=== PATIENT | female | born 1935 | race Caucasian/White ===

== ENCOUNTER → 2018-10-24 | Day surgery (SDC) | payer MEDICARE, OTHER ==
--- NOTE | 2018-10-25 15:20 | PATH ---
Cytology Non-Gynecological Report Patient Name: MISSY LEE [facility]. Rec. #: [id number] /Age/Gender: 1935 (Age: 83) / F Account: [id number] Location: RADIOLOGY INTER Taken: 10/24/2018 Received: 10/24/2018 Reported: 10/25/2018 Physicians: Louise Rivera M.D. Specimen(s) Received LEFT THYROID FNA Clinical History Left thyroid nodule, 3.97 x 4.05 x 2.86 cm Final Diagnosis THYROID, LEFT, FINE NEEDLE ASPIRATION: SATISFACTORY FOR EVALUATION. BETHESDA III: ATYPIA OF UNDETERMINED SIGNIFICANCE. ATYPICAL FOLLICULAR CELLS WITH MILD NUCLEAR ENLARGEMENT, FOCAL CLEARING, NUCLEAR GROOVES, AND FOCAL CROWDING DISPERSED CELLULAR FRAGMENTS, MICRO AND MACROFOLLICLES IN A BACKGROUND OF COLLOID. RARE LYMPHOCYTES AND MACROPHAGES NOTED. Comment: Molecular studies (Thyroseq) pending; results will be reported separately. Findings discussed with Dr. Morales. Electronically Signed Marleny Lopez M.D. Gross Description Received are eight direct smears, four of which are air-dried and Diff-Quik stained, and four of which are alcohol fixed and Pap stained. Also received is 20 ml of bloody formalin from which one cellblock is prepared.
== END | disposition home or self-care (01) ==
LOC: JRADIR 09:33
PROVIDERS: ATTEND Internal Medicine Endocrinology, Diabetes & Metabolism
PROC: 0G9G3ZX Drainage of Left Thyroid Gland Lobe, Percutaneous Approach, Diagnostic (ICD-10-PCS; principal; 2018-10-24)
PROC: BG44ZZZ Ultrasonography of Thyroid Gland (ICD-10-PCS; 2018-10-24)
DX: E04.1 Nontoxic single thyroid nodule (principal)
CPT/HCPCS: 76942; 88173; 88305-TC

== ENCOUNTER → 2018-11-01 | Day surgery (SDC) | payer MEDICARE, OTHER ==
--- NOTE | 2018-11-02 16:27 | PATH ---
Cytology Non-Gynecological Report Patient Name: MISSY LEE [facility]. Rec. #: [id number] /Age/Gender: 1935 (Age: 83) / F Account: [id number] Location: RADIOLOGY INTER Taken: 11/01/2018 Received: 11/01/2018 Reported: 11/02/2018 Physicians: Louise Rivera M.D. Specimen(s) Received ISTHMUS Clinical History Isthmus nodule, 1.98 x 1.75 x 1.76 cm Final Diagnosis THYROID, ISTHMUS, FINE NEEDLE ASPIRATION: SATISFACTORY FOR EVALUATION. BETHESDA CLASS II: BENIGN. CYTOLOGIC FINDINGS ARE CONSISTENT WITH A BENIGN FOLLICULAR NODULE. FEW SMALL FOLLICULAR CELLS, FEW MACROPHAGES, AND COLLOID PRESENT. Electronically Signed Marleny Lopez M.D. Gross Description Received are eight direct smears, four of which are air-dried and Diff-Quik stained, and four of which are alcohol fixed and Pap stained. Also received is 20 ml of bloody formalin from which one cellblock is prepared.
== END | disposition home or self-care (01) ==
LOC: JRADIR 09:36
PROVIDERS: ATTEND Internal Medicine Endocrinology, Diabetes & Metabolism
PROC: 0G9K3ZX Drainage of Thyroid Gland, Percutaneous Approach, Diagnostic (ICD-10-PCS; principal; 2018-11-01)
PROC: BG44ZZZ Ultrasonography of Thyroid Gland (ICD-10-PCS; 2018-11-01)
DX: E04.1 Nontoxic single thyroid nodule (principal)
CPT/HCPCS: 76942; 88173; 88305-TC

== ENCOUNTER 2021-01-09 05:33 | Inpatient (IN) | payer MEDICARE, OTHER ==
[2021-01-09] MEDS ORDERED: SODIUM CHLORIDE 2,585 ML IV ONE (06:41)
[2021-01-09 07:38] LABS: BASO % 0.3 % (0-2.0); HEMATOCRIT 41.9 % (32.4-45.2); HEMOGLOBIN 14.1 GM/dL (10.7-15.3); LYMPH % 7.9 % (8-40); MCHC 33.7 g/dl (32.0-36.0); MEAN CELL VOLUME 92.2 fl (80-96); MEAN PLT VOLUME 8.4 fl (7.5-11.1); MONO % 8.2 % (3.8-10.2); NEUT % 83.6 % (42.8-82.8); PLATELET COUNT 252 K/MM3 (134-434); RBC 4.54 M/mm3 (3.60-5.2); RDW 14.2 % (11.6-15.6); WHITE BLOOD COUNT 7.8 K/mm3 (4.0-10.0)
[2021-01-09 07:47] LABS: INR 1.07 (0.83-1.09); PROTHROMBIN TIME (PATIENT) 12.9 SEC (9.7-13.0)
[2021-01-09 07:47] LABS: EPI CELLS >36 /uL (0-25.1); HYALINE CASTS 7 /uL (0-3.1); PH,URINE 5.5 (5.0-8.0); URINE APPEARANCE CLOUDY; URINE BACTERIA >9,000 /uL (0-1359); URINE BILIRUBIN NEGATIVE (NEGATIVE); URINE COLOR YELLOW; URINE GLUCOSE (UA) NEGATIVE (NEGATIVE); URINE KETONE 2+ (NEGATIVE); URINE LEUK ESTERASE 1+ (NEGATIVE); URINE NITRITE POSITIVE (NEGATIVE); URINE PROTEIN 3+ (NEGATIVE); URINE UROBILINOGEN 0.2 mg/dL (0.2-1.0); URINE WBC 34 /uL (0-25.8)
[2021-01-09 07:50] LABS: ACTIVATED PTT 27.3 SECONDS (25.2-36.5)
[2021-01-09 08:00] LABS: CALCIUM 8.7 mg/dL (8.5-10.1); CHLORIDE 100 mmol/L (98-107); SODIUM 135 mmol/L (136-145)
[2021-01-09 08:02] LABS: ALBUMIN 3.6 g/dl (3.4-5.0); ANION GAP 7 MMOL/L (8-16); BLOOD UREA NITROGEN 18.2 mg/dL (7-18); CO2 28 mmol/L (21-32); GLUCOSE,RANDOM 96 mg/dL (74-106)
[2021-01-09 08:05] LABS: SGOT/AST 48 U/L (15-37); SGPT/ALT 24 U/L (13-61)
[2021-01-09 08:06] LABS: BILIRUBIN,TOTAL 0.5 mg/dL (0.2-1); TOT PROT 7.3 g/dl (6.4-8.2)
[2021-01-09 08:06] LABS: URINE RBC 45.1 /uL (0-23.9)
[2021-01-09] MEDS ORDERED: ACETAMINOPHEN 1000 MG/100 ML VIAL (NON FORMULARY) IVPB ONE (08:06)
[2021-01-09 08:07] LABS: ALK PHOS 77 U/L (45-117)
[2021-01-09] MEDS ORDERED: DEXAMETHASONE SOD PHOSPHATE 4 MG/1 ML VIAL IVPUSH ONE (08:43)
[2021-01-09] MEDS ORDERED: CEFTRIAXONE 1 GM in DEXTROSE 5%-WATER - 100 ML IVPB ONE (08:43)
[2021-01-09] MEDS ORDERED: CEFTRIAXONE 1 GM/50 ML BAG ONE (08:53)
[2021-01-09] MEDS ORDERED: ACETAMINOPHEN INJECTION 100 ML IVPB ONE (08:53)
[2021-01-09] MEDS ORDERED: DEXAMETHASONE SOD PHOSPHATE 4 MG/1 ML VIAL ONE (08:53)
[2021-01-09] MEDS ORDERED: MAG HYDROX/AL HYDROX/SIMETH 30 ML UNIT-DOSE CUP PO ONE (08:55)
[2021-01-09] MEDS ORDERED: FAMOTIDINE 20 MG/50 ML IVPB 20 MG/50 ML MG IVPB ONE ×2 (08:55→09:12)
[2021-01-09] MEDS ORDERED: MAG HYDROX/AL HYDROX/SIMETH 30 ML UNIT-DOSE CUP ONE (08:57)
[2021-01-09 09:02] LABS: LIPASE 546 U/L (73-393)
[2021-01-09 09:11] LABS: LDH 537 U/L (84-246); N-TERMINAL BNP 834.7 pg/ml (5-450)
[2021-01-09 09:46] LABS: ERYTHROCYTE SEDIMENTATION RATE 59 mm/hr (0-30)
[2021-01-09] MEDS ORDERED: ENOXAPARIN NA (PORCINE) 40 MG/0.4 ML DISP.SYRIN SQ ONE (13:01)
[2021-01-09] MEDS: ENOXAPARIN NA (PORCINE) 40 MG/0.4 ML DISP.SYRIN SQ SCH ×2 (13:05→22:03)
[2021-01-09] MEDS ORDERED: REMDESIVIR 200 MG in SODIUM CHLORIDE 210 ML IVPB ONE (15:25)
[2021-01-09] MEDS ORDERED: LOSARTAN POTASSIUM 50 MG TABLET PO ONE (23:09)
[2021-01-09] MEDS ORDERED: ACETAMINOPHEN 325 MG TABLET (FP) PO PRN (23:10)
[2021-01-10] MEDS ORDERED: amLODIPine BESYLATE 5 MG TABLET (FP) PO ONE (02:04)
[2021-01-10 07:06] LABS: SARS-CoV-2 NAA Detected (Not Detected)
[2021-01-10] MEDS ORDERED: PATIENT'S OWN MEDICATION (NON-FORMULARY) (Losartan Potassium [Losartan Potassium] 100 MG T PO SCH (10:00)
[2021-01-10] MEDS ORDERED: LOSARTAN POTASSIUM 50 MG TABLET PO SCH (10:00)
[2021-01-10] MEDS ORDERED: cefTRIAXone SODIUM 1 GM VIAL ONE (10:37)
[2021-01-10] MEDS ORDERED: DEXTROSE 5%-WATER - 50 ML IVPB ONE (10:38)
[2021-01-10] MEDS: DEXAMETHASONE SOD PHOSPHATE 4 MG/1 ML VIAL IVPUSH SCH (11:12)
[2021-01-10] MEDS: ENOXAPARIN NA (PORCINE) 40 MG/0.4 ML DISP.SYRIN SQ SCH ×2 (11:12→21:18)
[2021-01-10] MEDS: CEFTRIAXONE 1 GM in DEXTROSE 5%-WATER - 50 ML IVPB SCH (11:12)
[2021-01-10 11:51] LABS: BASO % 0.1 % (0-2.0); HEMATOCRIT 40.5 % (32.4-45.2); HEMOGLOBIN 13.6 GM/dL (10.7-15.3); LYMPH % 5.9 % (8-40); MCH 30.8 pg (25.7-33.7); MCHC 33.5 g/dl (32.0-36.0); MEAN CELL VOLUME 92.1 fl (80-96); MEAN PLT VOLUME 8.6 fl (7.5-11.1); MONO % 7.6 % (3.8-10.2); NEUT % 86.4 % (42.8-82.8); PLATELET COUNT 284 K/MM3 (134-434); RDW 14.3 % (11.6-15.6); WHITE BLOOD COUNT 9.9 K/mm3 (4.0-10.0)
[2021-01-10 12:07] LABS: CALCIUM 8.5 mg/dL (8.5-10.1); MAGNESIUM 2.4 mg/dL (1.8-2.4)
[2021-01-10 12:11] LABS: BILIRUBIN,TOTAL 0.4 mg/dL (0.2-1); CREATININE 0.9 mg/dL (0.55-1.3)
[2021-01-10 12:13] LABS: TOT PROT 6.3 g/dl (6.4-8.2)
[2021-01-10] MEDS ORDERED: ACETAMINOPHEN/CAFFEINE/BUTALBITAL 1 TAB PO PRN (15:08)
[2021-01-10] MEDS ORDERED: ACETAMINOPHEN 325 MG TABLET (FP) PO PRN (15:09)
[2021-01-10] MEDS: REMDESIVIR 100 MG in SODIUM CHLORIDE 230 ML IVPB SCH (16:49)
[2021-01-10] MEDS: ATORVASTATIN CA 20 MG TABLET (FP) PO SCH (21:18)
[2021-01-11 07:33] LABS: BASO % 0.1 % (0-2.0); HEMATOCRIT 38.3 % (32.4-45.2); LYMPH % 3.7 % (8-40); MCH 31.2 pg (25.7-33.7); MCHC 34.1 g/dl (32.0-36.0); MEAN CELL VOLUME 91.5 fl (80-96); MEAN PLT VOLUME 8.2 fl (7.5-11.1); MONO % 5.5 % (3.8-10.2); NEUT % 90.7 % (42.8-82.8); PLATELET COUNT 328 K/MM3 (134-434); RBC 4.18 M/mm3 (3.60-5.2); RDW 14.4 % (11.6-15.6); WHITE BLOOD COUNT 11.9 K/mm3 (4.0-10.0)
[2021-01-11 07:46] LABS: BLOOD UREA NITROGEN 32.6 mg/dL (7-18); CALCIUM 8.1 mg/dL (8.5-10.1); CREATININE 0.9 mg/dL (0.55-1.3); MAGNESIUM 2.3 mg/dL (1.8-2.4)
[2021-01-11 07:48] LABS: BILIRUBIN,TOTAL 0.4 mg/dL (0.2-1); TOT PROT 6.1 g/dl (6.4-8.2)
[2021-01-11] MEDS ORDERED: cefTRIAXone SODIUM 1 GM VIAL ONE ×2 (09:10→17:59)
[2021-01-11] MEDS ORDERED: DEXTROSE 5%-WATER - 50 ML IVPB ONE (09:10)
[2021-01-11] MEDS: DEXAMETHASONE SOD PHOSPHATE 4 MG/1 ML VIAL IVPUSH SCH (09:33)
[2021-01-11] MEDS: VALSARTAN 160 MG TABLET PO SCH (09:33)
[2021-01-11] MEDS: ENOXAPARIN NA (PORCINE) 40 MG/0.4 ML DISP.SYRIN SQ SCH ×2 (09:33→21:44)
[2021-01-11] MEDS: CEFTRIAXONE 1 GM in DEXTROSE 5%-WATER - 50 ML IVPB SCH (09:34)
[2021-01-11] MEDS: FAMOTIDINE 20 MG TABLET PO SCH (09:34)
[2021-01-11] MEDS ORDERED: VALSARTAN 160 MG TABLET PO SCH (10:00)
[2021-01-11] MEDS: REMDESIVIR 100 MG in SODIUM CHLORIDE 230 ML IVPB SCH (17:52)
[2021-01-11] MEDS ORDERED: LORazepam 2 MG/ML SDV VIAL IVPUSH ONE (21:26)
[2021-01-11] MEDS: ATORVASTATIN CA 20 MG TABLET (FP) PO SCH (21:44)
[2021-01-12 07:30] LABS: BASO % 0.1 % (0-2.0); HEMATOCRIT 39.9 % (32.4-45.2); HEMOGLOBIN 13.4 GM/dL (10.7-15.3); LYMPH % 1.8 % (8-40); MCH 31.1 pg (25.7-33.7); MCHC 33.6 g/dl (32.0-36.0); MEAN CELL VOLUME 92.5 fl (80-96); MEAN PLT VOLUME 8.5 fl (7.5-11.1); MONO % 4.8 % (3.8-10.2); NEUT % 93.3 % (42.8-82.8); PLATELET COUNT 361 K/MM3 (134-434); RBC 4.31 M/mm3 (3.60-5.2); RDW 14.6 % (11.6-15.6); WHITE BLOOD COUNT 16.1 K/mm3 (4.0-10.0)
[2021-01-12 07:41] LABS: MAGNESIUM 2.1 mg/dL (1.8-2.4)
[2021-01-12 07:42] LABS: BLOOD UREA NITROGEN 26.3 mg/dL (7-18)
[2021-01-12 07:44] LABS: ALBUMIN 2.9 g/dl (3.4-5.0); CALCIUM 8.3 mg/dL (8.5-10.1)
[2021-01-12 07:45] LABS: CREATININE 0.8 mg/dL (0.55-1.3)
[2021-01-12 07:46] LABS: BILIRUBIN,TOTAL 0.4 mg/dL (0.2-1); TOT PROT 5.9 g/dl (6.4-8.2)
[2021-01-12] MEDS ORDERED: cefTRIAXone SODIUM 1 GM VIAL ONE (08:59)
[2021-01-12] MEDS ORDERED: DEXTROSE 5%-WATER - 50 ML IVPB ONE (08:59)
[2021-01-12] MEDS: VALSARTAN 160 MG TABLET PO SCH (09:51)
[2021-01-12] MEDS: ENOXAPARIN NA (PORCINE) 40 MG/0.4 ML DISP.SYRIN SQ SCH ×2 (09:51→21:50)
[2021-01-12] MEDS: DEXAMETHASONE SOD PHOSPHATE 4 MG/1 ML VIAL IVPUSH SCH (09:52)
[2021-01-12] MEDS: CEFTRIAXONE 1 GM in DEXTROSE 5%-WATER - 50 ML IVPB SCH (09:56)
[2021-01-12] MEDS: FAMOTIDINE 20 MG TABLET PO SCH (09:57)
[2021-01-12] MEDS ORDERED: LORazepam 2 MG/ML SDV VIAL IVPUSH SCH (10:04)
[2021-01-12 10:31] LABS: ANISOCYTOSIS 0; MACROCYTOSIS 0; PLATELET ESTIMATE NORMAL
[2021-01-12] MEDS ORDERED: LORazepam 2 MG/ML SDV VIAL IVPUSH PRN ×2 (10:32→19:25)
[2021-01-12] MEDS ORDERED: FENTANYL D5W IVPB 1,000 MCG/200 ML BAG IVPB SCH (13:00)
[2021-01-12] MEDS ORDERED: FENTANYL NS IVPB 500 MCG/100 ML BAG IVPB ONE ×2 (13:06→17:37)
[2021-01-12] MEDS ORDERED: MIDAZOLAM 100 MG/100 ML MG IVPB ONE ×2 (13:07→21:47)
[2021-01-12] MEDS ORDERED: MIDAZOLAM HCL 2 MG/2 ML SINGLE DOSE VIAL ONE (13:07)
[2021-01-12] MEDS: MIDAZOLAM IN 0.9 % SOD.CHLORID 100 MG/100 ML PLAST..BAG IVPB SCH (13:15)
[2021-01-12] MEDS ORDERED: PROPOFOL 1,000,000 MCG/100 ML VIAL ONE (13:39)
[2021-01-12] MEDS ORDERED: VASOPRESSIN 20 UNITS/ML VIAL IV ONE (13:48)
[2021-01-12] MEDS: SODIUM CHLORIDE 1,000 ML IV SCH (14:00)
[2021-01-12] MEDS ORDERED: VECURONIUM BROMIDE 10 MG/10 ML VIAL ONE (14:11)
[2021-01-12] MEDS ORDERED: VECURONIUM BROMIDE 100 MG/100 ML BAG IVPB SCH (14:15)
[2021-01-12] MEDS: VASOPRESSIN 40 UNITS in SODIUM CHLORIDE 98 ML IVPB SCH (14:20)
[2021-01-12] MEDS ORDERED: MIDAZOLAM HCL 2 MG/2 ML SINGLE DOSE VIAL IVPUSH ONE (14:21)
[2021-01-12] MEDS ORDERED: SODIUM CHLORIDE 0.9% 500 ML INFUS.BAG IV ONE (14:21)
[2021-01-12] MEDS ORDERED: VECURONIUM BROMIDE 10 MG/10 ML VIAL IVPUSH ONE (14:21)
[2021-01-12] MEDS ORDERED: PROPOFOL 1,000,000 MCG/100 ML VIAL IVPB SCH (14:30)
[2021-01-12] MEDS ORDERED: NOREPINEPHRINE BITARTRATE 8,000 MCG/500 ML BAG IVPB SCH (14:30)
[2021-01-12] MEDS ORDERED: FENTANYL NS IVPB 500 MCG/100 ML BAG IVPB SCH (14:30)
[2021-01-12] MEDS ORDERED: TOCILIZUMAB (ACTEMRA) 200 MG/10 ML VIAL IVPB ONE (14:45)
[2021-01-12] MEDS ORDERED: TOCILIZUMAB IVPB ONE (15:00)
[2021-01-12] MEDS ORDERED: SODIUM CHLORIDE IVPB ONE (15:00)
[2021-01-12 15:39] LABS: ARTERIAL BLD GAS O2 SATURATION 94.2 mmHg (95-98); ARTERIAL BLOOD GAS BASE EXCESS -6.2 mmol/L (-2-2)
[2021-01-12 15:40] LABS: VENT MODE V
[2021-01-12 15:41] LABS: VENT RATE 12
[2021-01-12 15:43] LABS: ALLENS TEST POSITIVE; ARTERIAL BLOOD GAS pH 7.085 (7.350-7.450)
[2021-01-12] MEDS ORDERED: PT OWN MED DRAWER 7, Y5N ONE (16:50)
[2021-01-12] MEDS: REMDESIVIR 100 MG in SODIUM CHLORIDE 230 ML IVPB SCH (17:03)
[2021-01-12] MEDS: NOREPINEPHRINE D5W PREMIX 16,000 MCG/500 ML BAG IVPB SCH (17:05)
[2021-01-12] MEDS: FENTANYL NS IVPB 500 MCG/100 ML BAG IVPB SCH (17:58)
[2021-01-12] MEDS: ATORVASTATIN CA 20 MG TABLET (FP) PO SCH (21:50)
[2021-01-12] MEDS: MUPIROCIN 2% TOPICAL OINTMENT FOR DECOLONIZATION NS SCH (21:50)
[2021-01-12] MEDS: CHLORHEXIDINE GLUCONATE 4% CLEANSER FOR DECOLONIZATION TP SCH (21:50)
[2021-01-13] MEDS: FENTANYL NS IVPB 500 MCG/100 ML BAG IVPB SCH ×2 (01:00→18:06)
[2021-01-13] MEDS: NOREPINEPHRINE D5W PREMIX 16,000 MCG/500 ML BAG IVPB SCH ×2 (01:00→18:05)
[2021-01-13] MEDS: SODIUM CHLORIDE 1,000 ML IV SCH (01:00)
[2021-01-13] MEDS: MIDAZOLAM IN 0.9 % SOD.CHLORID 100 MG/100 ML PLAST..BAG IVPB SCH ×2 (01:00→18:48)
[2021-01-13 06:04] LABS: ARTERIAL BLD GAS O2 SATURATION 97.4 mmHg (95-98); ARTERIAL BLOOD GAS PO2 113.7 mmHg (80-100); ARTERIAL BLOOD GAS pH 7.236 (7.350-7.450)
[2021-01-13 06:06] LABS: VENT MODE VOL A/C; VENT RATE 30
[2021-01-13 07:44] LABS: BASO % 0.2 % (0-2.0); HEMATOCRIT 37.5 % (32.4-45.2); HEMOGLOBIN 12.5 GM/dL (10.7-15.3); LYMPH % 2.5 % (8-40); MCH 30.9 pg (25.7-33.7); MCHC 33.3 g/dl (32.0-36.0); MEAN CELL VOLUME 92.8 fl (80-96); MEAN PLT VOLUME 8.7 fl (7.5-11.1); MONO % 4.2 % (3.8-10.2); NEUT % 93.1 % (42.8-82.8); PLATELET COUNT 419 K/MM3 (134-434); RBC 4.04 M/mm3 (3.60-5.2); RDW 14.9 % (11.6-15.6); WHITE BLOOD COUNT 18.6 K/mm3 (4.0-10.0)
[2021-01-13 07:55] LABS: BLOOD UREA NITROGEN 39.7 mg/dL (7-18); CALCIUM 7.8 mg/dL (8.5-10.1); MAGNESIUM 2.2 mg/dL (1.8-2.4)
[2021-01-13 07:57] LABS: ALBUMIN 2.6 g/dl (3.4-5.0)
[2021-01-13 07:59] LABS: BILIRUBIN,TOTAL 0.3 mg/dL (0.2-1); TOT PROT 5.5 g/dl (6.4-8.2)
[2021-01-13 08:00] LABS: CREATININE 1.1 mg/dL (0.55-1.3)
[2021-01-13] MEDS ORDERED: cefTRIAXone SODIUM 1 GM VIAL ONE (08:47)
[2021-01-13] MEDS ORDERED: DEXTROSE 5%-WATER - 50 ML IVPB ONE (08:47)
[2021-01-13] MEDS ORDERED: DEXTROSE 5%-LACTATED RINGERS 1,000 ML IV SCH (09:00)
[2021-01-13] MEDS: DEXAMETHASONE SOD PHOSPHATE 4 MG/1 ML VIAL IVPUSH SCH (09:27)
[2021-01-13] MEDS: FAMOTIDINE 20 MG/50 ML IVPB 20 MG/50 ML MG IVPB SCH (09:28)
[2021-01-13] MEDS: ENOXAPARIN NA (PORCINE) 40 MG/0.4 ML DISP.SYRIN SQ SCH ×2 (09:29→21:01)
[2021-01-13] MEDS: CEFTRIAXONE 1 GM in DEXTROSE 5%-WATER - 50 ML IVPB SCH (09:30)
[2021-01-13 10:03] LABS: ANISOCYTOSIS 0; HELMET CELLS 0; HOWELL-JOLLY BODIES 0; MACROCYTOSIS 0; OVALOCYTE 0; PLATELET ESTIMATE NORMAL; ROULEAU 0; SICKELED CELLS 0; TARGET CELLS 0; TEAR DROP CELLS 0; TOXIC GRANULATION 0
[2021-01-13] MEDS: LACTATED RINGERS SOLUTION 1,000 ML/1,000 ML INFUS.BAG IV SCH (10:08)
[2021-01-13] MEDS: MUPIROCIN 2% TOPICAL OINTMENT FOR DECOLONIZATION NS SCH ×2 (10:08→21:02)
[2021-01-13 14:58] VITALS: BMI 35.1
[2021-01-13 16:50] LABS: CHLORIDE 113 mmol/L (98-107); SODIUM 146 mmol/L (136-145)
[2021-01-13 16:52] LABS: CALCIUM 7.6 mg/dL (8.5-10.1)
[2021-01-13 16:53] LABS: ALBUMIN 2.5 g/dl (3.4-5.0); ANION GAP 8 MMOL/L (8-16); CO2 24 mmol/L (21-32); GLUCOSE,RANDOM 235 mg/dL (74-106)
[2021-01-13 16:56] LABS: CREATININE 1.3 mg/dL (0.55-1.3); SGOT/AST 53 U/L (15-37); SGPT/ALT 40 U/L (13-61)
[2021-01-13 16:57] LABS: BILIRUBIN,TOTAL 0.2 mg/dL (0.2-1); TOT PROT 5.2 g/dl (6.4-8.2)
[2021-01-13 16:59] LABS: ALK PHOS 67 U/L (45-117)
[2021-01-13] MEDS ORDERED: REMDESIVIR 100 MG in SODIUM CHLORIDE 230 ML IVPB SCH (17:00)
[2021-01-13] MEDS ORDERED: MIDAZOLAM 100 MG/100 ML MG IVPB ONE (18:02)
[2021-01-13] MEDS: VASOPRESSIN 40 UNITS in SODIUM CHLORIDE 98 ML IVPB SCH (18:03)
[2021-01-13 20:15] LABS: HEMATOCRIT 36.6 % (32.4-45.2); HEMOGLOBIN 11.7 GM/dL (10.7-15.3); MCH 30.1 pg (25.7-33.7); MEAN CELL VOLUME 94.2 fl (80-96); MEAN PLT VOLUME 9.2 fl (7.5-11.1); PLATELET COUNT 394 K/MM3 (134-434); RBC 3.88 M/mm3 (3.60-5.2); WHITE BLOOD COUNT 15.5 K/mm3 (4.0-10.0)
[2021-01-13] MEDS: CHLORHEXIDINE GLUCONATE 4% CLEANSER FOR DECOLONIZATION TP SCH (21:02)
[2021-01-13] MEDS: ATORVASTATIN CA 20 MG TABLET (FP) PO SCH (21:02)
[2021-01-14 07:12] LABS: HEMOGLOBIN 11.8 GM/dL (10.7-15.3); MCH 31.1 pg (25.7-33.7); MCHC 33.7 g/dl (32.0-36.0); MEAN CELL VOLUME 92.4 fl (80-96); MEAN PLT VOLUME 8.2 fl (7.5-11.1); PLATELET COUNT 408 K/MM3 (134-434); RBC 3.79 M/mm3 (3.60-5.2); RDW 14.9 % (11.6-15.6); WHITE BLOOD COUNT 13.5 K/mm3 (4.0-10.0)
[2021-01-14 07:28] LABS: CHLORIDE 114 mmol/L (98-107); SODIUM 145 mmol/L (136-145)
[2021-01-14 07:30] LABS: CALCIUM 7.6 mg/dL (8.5-10.1)
[2021-01-14 07:31] LABS: ALBUMIN 2.4 g/dl (3.4-5.0); ANION GAP 6 MMOL/L (8-16); BLOOD UREA NITROGEN 59.6 mg/dL (7-18); CO2 25 mmol/L (21-32); GLUCOSE,RANDOM 218 mg/dL (74-106)
[2021-01-14 07:32] LABS: MAGNESIUM 2.1 mg/dL (1.8-2.4)
[2021-01-14 07:34] LABS: CREATININE 1.5 mg/dL (0.55-1.3); PHOSPHOROUS 2.9 mg/dL (2.5-4.9); SGOT/AST 35 U/L (15-37); SGPT/ALT 31 U/L (13-61)
[2021-01-14 07:35] LABS: BILIRUBIN,TOTAL 0.2 mg/dL (0.2-1)
[2021-01-14 07:36] LABS: TOT PROT 4.8 g/dl (6.4-8.2)
[2021-01-14 07:37] LABS: ALK PHOS 63 U/L (45-117)
[2021-01-14] MEDS ORDERED: cefTRIAXone SODIUM 1 GM VIAL ONE (09:25)
[2021-01-14] MEDS ORDERED: DEXTROSE 5%-WATER - 50 ML IVPB ONE (09:26)
[2021-01-14] MEDS ORDERED: MIDAZOLAM 100 MG/100 ML MG IVPB ONE (09:28)
[2021-01-14] MEDS: MUPIROCIN 2% TOPICAL OINTMENT FOR DECOLONIZATION NS SCH ×2 (09:30→21:56)
[2021-01-14] MEDS: DEXAMETHASONE SOD PHOSPHATE 4 MG/1 ML VIAL IVPUSH SCH (09:30)
[2021-01-14] MEDS: MIDAZOLAM IN 0.9 % SOD.CHLORID 100 MG/100 ML PLAST..BAG IVPB SCH ×2 (09:30→13:49)
[2021-01-14] MEDS: ENOXAPARIN NA (PORCINE) 40 MG/0.4 ML DISP.SYRIN SQ SCH ×2 (09:30→21:56)
[2021-01-14] MEDS: FAMOTIDINE 20 MG/50 ML IVPB 20 MG/50 ML MG IVPB SCH (09:31)
[2021-01-14] MEDS: CEFTRIAXONE 1 GM in DEXTROSE 5%-WATER - 50 ML IVPB SCH (09:31)
[2021-01-14] MEDS: LACTATED RINGERS SOLUTION 1,000 ML/1,000 ML INFUS.BAG IV SCH (10:17)
[2021-01-14] MEDS ORDERED: ATROPINE SULFATE 1 MG/10 ML DISP.SYRIN IVPUSH ONE (10:29)
[2021-01-14] MEDS ORDERED: REMDESIVIR 100 MG in SODIUM CHLORIDE 230 ML IVPB SCH (12:00)
[2021-01-14] MEDS: FENTANYL NS IVPB 500 MCG/100 ML BAG IVPB SCH ×2 (13:09→19:01)
[2021-01-14] MEDS: VASOPRESSIN 40 UNITS in SODIUM CHLORIDE 98 ML IVPB SCH (16:54)
[2021-01-14] MEDS: NOREPINEPHRINE D5W PREMIX 16,000 MCG/500 ML BAG IVPB SCH (16:55)
[2021-01-14] MEDS: REMDESIVIR 100 MG in SODIUM CHLORIDE 250 ML IVPB SCH (17:09)
[2021-01-14] MEDS: CHLORHEXIDINE GLUCONATE 4% CLEANSER FOR DECOLONIZATION TP SCH (21:56)
[2021-01-14] MEDS: ATORVASTATIN CA 20 MG TABLET (FP) PO SCH (21:56)
[2021-01-15] MEDS ORDERED: MIDAZOLAM 100 MG/100 ML MG IVPB ONE ×2 (01:55→21:36)
[2021-01-15 06:58] LABS: HEMATOCRIT 33.8 % (32.4-45.2); HEMOGLOBIN 11.5 GM/dL (10.7-15.3); MCH 31.5 pg (25.7-33.7); MCHC 34.1 g/dl (32.0-36.0); MEAN CELL VOLUME 92.4 fl (80-96); MEAN PLT VOLUME 8.2 fl (7.5-11.1); PLATELET COUNT 362 K/MM3 (134-434); RBC 3.66 M/mm3 (3.60-5.2); RDW 15.1 % (11.6-15.6); WHITE BLOOD COUNT 13.3 K/mm3 (4.0-10.0)
[2021-01-15 07:04] LABS: ALBUMIN 2.2 g/dl (3.4-5.0)
[2021-01-15 07:05] LABS: BLOOD UREA NITROGEN 69.3 mg/dL (7-18)
[2021-01-15 07:06] LABS: BILIRUBIN,TOTAL 0.2 mg/dL (0.2-1); CALCIUM 7.4 mg/dL (8.5-10.1); TOT PROT 4.6 g/dl (6.4-8.2)
[2021-01-15 07:07] LABS: MAGNESIUM 2.1 mg/dL (1.8-2.4)
[2021-01-15 07:08] LABS: CREATININE 1.2 mg/dL (0.55-1.3); PHOSPHOROUS 2.7 mg/dL (2.5-4.9)
[2021-01-15] MEDS ORDERED: DEXTROSE 5%-WATER - 50 ML IVPB ONE (09:50)
[2021-01-15] MEDS ORDERED: cefTRIAXone SODIUM 1 GM VIAL ONE (09:50)
[2021-01-15] MEDS: MUPIROCIN 2% TOPICAL OINTMENT FOR DECOLONIZATION NS SCH ×2 (09:52→21:38)
[2021-01-15] MEDS: LACTATED RINGERS SOLUTION 1,000 ML/1,000 ML INFUS.BAG IV SCH (09:53)
[2021-01-15] MEDS: ENOXAPARIN NA (PORCINE) 40 MG/0.4 ML DISP.SYRIN SQ SCH ×2 (09:53→21:38)
[2021-01-15] MEDS: CEFTRIAXONE 1 GM in DEXTROSE 5%-WATER - 50 ML IVPB SCH (09:53)
[2021-01-15] MEDS: FAMOTIDINE 20 MG/50 ML IVPB 20 MG/50 ML MG IVPB SCH (09:53)
[2021-01-15] MEDS: DEXAMETHASONE SOD PHOSPHATE 4 MG/1 ML VIAL IVPUSH SCH (09:53)
[2021-01-15] MEDS: FENTANYL NS IVPB 500 MCG/100 ML BAG IVPB SCH ×3 (11:41→19:18)
[2021-01-15] MEDS: MIDAZOLAM IN 0.9 % SOD.CHLORID 100 MG/100 ML PLAST..BAG IVPB SCH (13:00)
[2021-01-15] MEDS: VASOPRESSIN 40 UNITS in SODIUM CHLORIDE 98 ML IVPB SCH (14:47)
[2021-01-15] MEDS ORDERED: PT OWN MED DRAWER 7, Y5N ONE (16:39)
[2021-01-15] MEDS: ACETAMINOPHEN 325 MG TABLET (FP) PO PRN (18:00)
[2021-01-15] MEDS: NOREPINEPHRINE D5W PREMIX 16,000 MCG/500 ML BAG IVPB SCH (18:03)
[2021-01-15] MEDS: REMDESIVIR 100 MG in SODIUM CHLORIDE 250 ML IVPB SCH (18:04)
[2021-01-15] MEDS: CHLORHEXIDINE GLUCONATE 4% CLEANSER FOR DECOLONIZATION TP SCH (21:38)
[2021-01-15] MEDS: ATORVASTATIN CA 20 MG TABLET (FP) PO SCH (21:39)
[2021-01-16] MEDS: FENTANYL NS IVPB 500 MCG/100 ML BAG IVPB SCH ×3 (03:02→15:56)
[2021-01-16] MEDS: LACTATED RINGERS SOLUTION 1,000 ML/1,000 ML INFUS.BAG IV SCH ×2 (03:02→16:48)
[2021-01-16] MEDS: MIDAZOLAM IN 0.9 % SOD.CHLORID 100 MG/100 ML PLAST..BAG IVPB SCH ×2 (03:02→16:52)
[2021-01-16 07:20] LABS: CALCIUM 7.6 mg/dL (8.5-10.1)
[2021-01-16 07:21] LABS: ALBUMIN 2.1 g/dl (3.4-5.0); BASO % 0.1 % (0-2.0); BLOOD UREA NITROGEN 72.5 mg/dL (7-18); HEMATOCRIT 35.1 % (32.4-45.2); HEMOGLOBIN 11.8 GM/dL (10.7-15.3); LYMPH % 2.1 % (8-40); MAGNESIUM 2.3 mg/dL (1.8-2.4); MCHC 33.6 g/dl (32.0-36.0); MEAN CELL VOLUME 92.4 fl (80-96); MEAN PLT VOLUME 8.8 fl (7.5-11.1); NEUT % 92.8 % (42.8-82.8); PLATELET COUNT 370 K/MM3 (134-434); RDW 14.9 % (11.6-15.6); WHITE BLOOD COUNT 15.5 K/mm3 (4.0-10.0)
[2021-01-16 07:24] LABS: CREATININE 1.2 mg/dL (0.55-1.3); PHOSPHOROUS 3.3 mg/dL (2.5-4.9)
[2021-01-16 07:26] LABS: BILIRUBIN,TOTAL 0.2 mg/dL (0.2-1); TOT PROT 4.5 g/dl (6.4-8.2)
[2021-01-16] MEDS ORDERED: DEXTROSE 5%-WATER - 50 ML IVPB ONE (09:10)
[2021-01-16] MEDS ORDERED: cefTRIAXone SODIUM 1 GM VIAL ONE (09:10)
[2021-01-16] MEDS: FAMOTIDINE 20 MG/50 ML IVPB 20 MG/50 ML MG IVPB SCH (09:11)
[2021-01-16] MEDS: ENOXAPARIN NA (PORCINE) 40 MG/0.4 ML DISP.SYRIN SQ SCH ×2 (09:13→21:33)
[2021-01-16] MEDS: DEXAMETHASONE SOD PHOSPHATE 4 MG/1 ML VIAL IVPUSH SCH (09:15)
[2021-01-16] MEDS: CEFTRIAXONE 1 GM in DEXTROSE 5%-WATER - 50 ML IVPB SCH (09:15)
[2021-01-16] MEDS: MUPIROCIN 2% TOPICAL OINTMENT FOR DECOLONIZATION NS SCH ×2 (10:02→21:33)
[2021-01-16 10:39] LABS: ANISOCYTOSIS 0; MACROCYTOSIS 0; PLATELET ESTIMATE NORMAL
[2021-01-16] MEDS: VASOPRESSIN 40 UNITS in SODIUM CHLORIDE 98 ML IVPB SCH (16:53)
[2021-01-16] MEDS: NOREPINEPHRINE D5W PREMIX 16,000 MCG/500 ML BAG IVPB SCH (17:56)
[2021-01-16] MEDS: REMDESIVIR 100 MG in SODIUM CHLORIDE 250 ML IVPB SCH (17:56)
[2021-01-16] MEDS: CHLORHEXIDINE GLUCONATE 4% CLEANSER FOR DECOLONIZATION TP SCH (21:33)
[2021-01-16] MEDS: ATORVASTATIN CA 20 MG TABLET (FP) PO SCH (21:33)
[2021-01-16] MEDS ORDERED: MIDAZOLAM 100 MG/100 ML MG IVPB ONE (23:25)
[2021-01-17] MEDS: FENTANYL NS IVPB 500 MCG/100 ML BAG IVPB SCH ×4 (00:09→20:00)
[2021-01-17 01:06] LABS: HEP B CORE AB, TOT Negative (Negative)
[2021-01-17 06:16] LABS: ARTERIAL BLD GAS O2 SATURATION 92.6 mmHg (95-98); ARTERIAL BLOOD GAS PO2 70.9 mmHg (80-100)
[2021-01-17 06:18] LABS: ALLENS TEST POSITIVE; VENT MODE A/C; VENT RATE 30
[2021-01-17 06:28] LABS: HEMATOCRIT 37.8 % (32.4-45.2); HEMOGLOBIN 12.3 GM/dL (10.7-15.3); MCH 30.5 pg (25.7-33.7); MCHC 32.6 g/dl (32.0-36.0); MEAN CELL VOLUME 93.5 fl (80-96); MEAN PLT VOLUME 8.9 fl (7.5-11.1); PLATELET COUNT 360 K/MM3 (134-434); RBC 4.04 M/mm3 (3.60-5.2); RDW 15.1 % (11.6-15.6); WHITE BLOOD COUNT 24.1 K/mm3 (4.0-10.0)
[2021-01-17 06:49] LABS: CALCIUM 7.8 mg/dL (8.5-10.1)
[2021-01-17 06:50] LABS: BLOOD UREA NITROGEN 74.8 mg/dL (7-18); MAGNESIUM 2.3 mg/dL (1.8-2.4)
[2021-01-17 06:53] LABS: CREATININE 1.1 mg/dL (0.55-1.3); PHOSPHOROUS 3.5 mg/dL (2.5-4.9)
[2021-01-17] MEDS: MIDAZOLAM IN 0.9 % SOD.CHLORID 100 MG/100 ML PLAST..BAG IVPB SCH (09:40)
[2021-01-17] MEDS ORDERED: cefTRIAXone SODIUM 1 GM VIAL ONE (10:02)
[2021-01-17] MEDS ORDERED: DEXTROSE 5%-WATER - 50 ML IVPB ONE (10:03)
[2021-01-17] MEDS: CEFTRIAXONE 1 GM in DEXTROSE 5%-WATER - 50 ML IVPB SCH (10:04)
[2021-01-17] MEDS: FAMOTIDINE 20 MG/50 ML IVPB 20 MG/50 ML MG IVPB SCH (10:04)
[2021-01-17] MEDS: DEXAMETHASONE SOD PHOSPHATE 4 MG/1 ML VIAL IVPUSH SCH (10:06)
[2021-01-17] MEDS: ENOXAPARIN NA (PORCINE) 40 MG/0.4 ML DISP.SYRIN SQ SCH ×2 (10:07→21:52)
[2021-01-17] MEDS: MUPIROCIN 2% TOPICAL OINTMENT FOR DECOLONIZATION NS SCH (10:07)
[2021-01-17] MEDS: LACTATED RINGERS SOLUTION 1,000 ML/1,000 ML INFUS.BAG IV SCH (10:07)
[2021-01-17] MEDS: INSULIN SLIDING SCALE (NOVOLOG) 1 VIAL SQ SCH ×3 (12:02→23:50)
[2021-01-17] MEDS ORDERED: DOCUSATE NA 100 MG/10 ML UNIT-DOSE CUPS PO PRN (14:25)
[2021-01-17] MEDS ORDERED: POLYETHYLENE GLYCOL 3350 119 GM BTL PO SCH (14:30)
[2021-01-17] MEDS: REMDESIVIR 100 MG in SODIUM CHLORIDE 250 ML IVPB SCH (17:03)
[2021-01-17] MEDS: VASOPRESSIN 40 UNITS in SODIUM CHLORIDE 98 ML IVPB SCH (17:03)
[2021-01-17] MEDS: NOREPINEPHRINE D5W PREMIX 16,000 MCG/500 ML BAG IVPB SCH (17:16)
[2021-01-17] MEDS ORDERED: MIDAZOLAM 100 MG/100 ML MG IVPB ONE (20:16)
[2021-01-17] MEDS: ATORVASTATIN CA 20 MG TABLET (FP) PO SCH (21:52)
[2021-01-17] MEDS: SENNOSIDES 8.8 MG/5 ML BULK BOTTLE PO SCH (21:52)
[2021-01-17] MEDS: CHLORHEXIDINE GLUCONATE 4% CLEANSER FOR DECOLONIZATION TP SCH (23:51)
[2021-01-18] MEDS: INSULIN SLIDING SCALE (NOVOLOG) 1 VIAL SQ SCH ×3 (06:45→17:46)
[2021-01-18 06:46] LABS: ARTERIAL BLOOD GAS BASE EXCESS -3.6 mmol/L (-2-2); ARTERIAL BLOOD GAS PO2 79.2 mmHg (80-100); ARTERIAL BLOOD GAS pH 7.334 (7.350-7.450)
[2021-01-18 06:56] LABS: ALLENS TEST POSITIVE
[2021-01-18 06:57] LABS: VENT MODE A/C; VENT RATE 30
[2021-01-18 07:41] LABS: BASO % 0.2 % (0-2.0); HEMATOCRIT 35.5 % (32.4-45.2); HEMOGLOBIN 11.8 GM/dL (10.7-15.3); LYMPH % 1.5 % (8-40); MCH 30.6 pg (25.7-33.7); MCHC 33.2 g/dl (32.0-36.0); MEAN CELL VOLUME 92.4 fl (80-96); MEAN PLT VOLUME 9.6 fl (7.5-11.1); MONO % 4.8 % (3.8-10.2); NEUT % 93.5 % (42.8-82.8); PLATELET COUNT 311 K/MM3 (134-434); RBC 3.84 M/mm3 (3.60-5.2); WHITE BLOOD COUNT 24.6 K/mm3 (4.0-10.0)
[2021-01-18 07:54] LABS: BLOOD UREA NITROGEN 61.8 mg/dL (7-18); CALCIUM 7.6 mg/dL (8.5-10.1)
[2021-01-18 07:55] LABS: MAGNESIUM 2.2 mg/dL (1.8-2.4)
[2021-01-18 07:57] LABS: CREATININE 0.9 mg/dL (0.55-1.3)
[2021-01-18 07:59] LABS: BILIRUBIN,TOTAL 0.2 mg/dL (0.2-1); PHOSPHOROUS 2.9 mg/dL (2.5-4.9); TOT PROT 4.1 g/dl (6.4-8.2)
[2021-01-18 09:12] LABS: ANISOCYTOSIS 0; MACROCYTOSIS 0; PLATELET ESTIMATE NORMAL
[2021-01-18] MEDS ORDERED: DEXTROSE 5%-WATER - 50 ML IVPB ONE ×2 (09:20→17:44)
[2021-01-18] MEDS ORDERED: cefTRIAXone SODIUM 1 GM VIAL ONE (09:20)
[2021-01-18] MEDS: FAMOTIDINE 20 MG/50 ML IVPB 20 MG/50 ML MG IVPB SCH (09:22)
[2021-01-18] MEDS: CEFTRIAXONE 1 GM in DEXTROSE 5%-WATER - 50 ML IVPB SCH (09:24)
[2021-01-18] MEDS: ENOXAPARIN NA (PORCINE) 40 MG/0.4 ML DISP.SYRIN SQ SCH ×2 (09:25→21:04)
[2021-01-18] MEDS: DEXAMETHASONE SOD PHOSPHATE 4 MG/1 ML VIAL IVPUSH SCH (09:25)
[2021-01-18] MEDS: LACTATED RINGERS SOLUTION 1,000 ML/1,000 ML INFUS.BAG IV SCH ×2 (12:37→14:06)
[2021-01-18] MEDS: FENTANYL NS IVPB 500 MCG/100 ML BAG IVPB SCH ×2 (12:38→18:41)
[2021-01-18] MEDS: VASOPRESSIN 40 UNITS in SODIUM CHLORIDE 98 ML IVPB SCH (14:06)
[2021-01-18] MEDS ORDERED: PIPERACILLIN/TAZOBACTAM 3.375 GM VIAL IVPB ONE (17:44)
[2021-01-18] MEDS: NOREPINEPHRINE D5W PREMIX 16,000 MCG/500 ML BAG IVPB SCH (17:45)
[2021-01-18] MEDS: REMDESIVIR 100 MG in SODIUM CHLORIDE 250 ML IVPB SCH (17:45)
[2021-01-18] MEDS: PIPERACILLIN/TAZOB 3.375 GM 3.375 GM in DEXTROSE 5%-WATER - 50 ML IVPB SCH (17:46)
[2021-01-18] MEDS ORDERED: MIDAZOLAM 100 MG/100 ML MG IVPB ONE (17:47)
[2021-01-18] MEDS: MIDAZOLAM IN 0.9 % SOD.CHLORID 100 MG/100 ML PLAST..BAG IVPB SCH ×2 (17:52→18:40)
[2021-01-18] MEDS ORDERED: PT OWN MED DRAWER 7, Y5N ONE (20:36)
[2021-01-18] MEDS: ATORVASTATIN CA 20 MG TABLET (FP) PO SCH (21:04)
[2021-01-18] MEDS: SENNOSIDES 8.8 MG/5 ML BULK BOTTLE PO SCH (21:04)
[2021-01-18] MEDS: CHLORHEXIDINE GLUCONATE 4% CLEANSER FOR DECOLONIZATION TP SCH (22:12)
[2021-01-19] MEDS ORDERED: PIPERACILLIN/TAZOBACTAM 3.375 GM VIAL IVPB ONE ×3 (00:46→17:38)
[2021-01-19] MEDS ORDERED: DEXTROSE 5%-WATER - 50 ML IVPB ONE ×3 (00:47→17:38)
[2021-01-19] MEDS: INSULIN SLIDING SCALE (NOVOLOG) 1 VIAL SQ SCH ×5 (00:53→23:58)
[2021-01-19] MEDS: PIPERACILLIN/TAZOB 3.375 GM 3.375 GM in DEXTROSE 5%-WATER - 50 ML IVPB SCH ×3 (01:00→18:12)
[2021-01-19 07:11] LABS: BASO % 0.1 % (0-2.0); HEMATOCRIT 36.5 % (32.4-45.2); LYMPH % 2.2 % (8-40); MCH 30.2 pg (25.7-33.7); MCHC 32.7 g/dl (32.0-36.0); MEAN CELL VOLUME 92.1 fl (80-96); MONO % 6.3 % (3.8-10.2); NEUT % 91.4 % (42.8-82.8); PLATELET COUNT 283 K/MM3 (134-434); RBC 3.96 M/mm3 (3.60-5.2); RDW 15.1 % (11.6-15.6); WHITE BLOOD COUNT 27.4 K/mm3 (4.0-10.0)
[2021-01-19 07:28] LABS: BLOOD UREA NITROGEN 62.7 mg/dL (7-18); CALCIUM 7.3 mg/dL (8.5-10.1)
[2021-01-19 07:30] LABS: PHOSPHOROUS 3.4 mg/dL (2.5-4.9)
[2021-01-19 07:32] LABS: BILIRUBIN,TOTAL 0.2 mg/dL (0.2-1)
[2021-01-19 09:06] LABS: ANISOCYTOSIS 0; HELMET CELLS 0; HOWELL-JOLLY BODIES 0; MACROCYTOSIS 0; OVALOCYTE 0; PLATELET ESTIMATE NORMAL; ROULEAU 0; SICKELED CELLS 0; TARGET CELLS 0; TEAR DROP CELLS 0; TOXIC GRANULATION 0
[2021-01-19] MEDS: ENOXAPARIN NA (PORCINE) 40 MG/0.4 ML DISP.SYRIN SQ SCH ×2 (09:15→21:15)
[2021-01-19] MEDS: DEXAMETHASONE SOD PHOSPHATE 4 MG/1 ML VIAL IVPUSH SCH (09:15)
[2021-01-19] MEDS: FAMOTIDINE 20 MG/50 ML IVPB 20 MG/50 ML MG IVPB SCH (09:16)
[2021-01-19] MEDS ORDERED: MIDAZOLAM 100 MG/100 ML MG IVPB ONE ×2 (09:21→21:13)
[2021-01-19] MEDS: FENTANYL NS IVPB 500 MCG/100 ML BAG IVPB SCH ×2 (10:07→18:11)
[2021-01-19] MEDS: MIDAZOLAM IN 0.9 % SOD.CHLORID 100 MG/100 ML PLAST..BAG IVPB SCH (10:07)
[2021-01-19] MEDS: NOREPINEPHRINE D5W PREMIX 16,000 MCG/500 ML BAG IVPB SCH (17:35)
[2021-01-19] MEDS: LACTATED RINGERS SOLUTION 1,000 ML/1,000 ML INFUS.BAG IV SCH (18:08)
[2021-01-19] MEDS: VASOPRESSIN 40 UNITS in SODIUM CHLORIDE 98 ML IVPB SCH (18:08)
[2021-01-19] MEDS ORDERED: PT OWN MED DRAWER 7, Y5N ONE (21:14)
[2021-01-19] MEDS: SENNOSIDES 8.8 MG/5 ML BULK BOTTLE PO SCH (21:15)
[2021-01-19] MEDS: ATORVASTATIN CA 20 MG TABLET (FP) PO SCH (21:15)
[2021-01-19] MEDS: CHLORHEXIDINE GLUCONATE 4% CLEANSER FOR DECOLONIZATION TP SCH (21:16)
[2021-01-20] MEDS: PIPERACILLIN/TAZOB 3.375 GM 3.375 GM in DEXTROSE 5%-WATER - 50 ML IVPB SCH ×3 (01:38→17:51)
[2021-01-20] MEDS: INSULIN SLIDING SCALE (NOVOLOG) 1 VIAL SQ SCH ×3 (06:22→17:47)
[2021-01-20 07:12] LABS: BASO % 0.1 % (0-2.0); HEMATOCRIT 35.7 % (32.4-45.2); HEMOGLOBIN 11.7 GM/dL (10.7-15.3); LYMPH % 2.3 % (8-40); MCH 30.4 pg (25.7-33.7); MCHC 32.9 g/dl (32.0-36.0); MEAN CELL VOLUME 92.3 fl (80-96); MEAN PLT VOLUME 10.2 fl (7.5-11.1); NEUT % 91.6 % (42.8-82.8); PLATELET COUNT 240 K/MM3 (134-434); RBC 3.86 M/mm3 (3.60-5.2); RDW 14.8 % (11.6-15.6)
[2021-01-20 07:23] LABS: WHITE BLOOD COUNT 31.2 K/mm3 (4.0-10.0)
[2021-01-20 07:38] LABS: CALCIUM 7.2 mg/dL (8.5-10.1)
[2021-01-20 07:39] LABS: BLOOD UREA NITROGEN 59.7 mg/dL (7-18); MAGNESIUM 2.1 mg/dL (1.8-2.4)
[2021-01-20 07:40] LABS: BILIRUBIN,TOTAL 0.4 mg/dL (0.2-1); PHOSPHOROUS 3.3 mg/dL (2.5-4.9); TOT PROT 3.9 g/dl (6.4-8.2)
[2021-01-20] MEDS ORDERED: PT OWN MED DRAWER 7, Y5N ONE ×2 (08:25→11:38)
[2021-01-20] MEDS ORDERED: DEXTROSE 5%-WATER - 50 ML IVPB ONE ×3 (08:25→17:12)
[2021-01-20] MEDS ORDERED: PIPERACILLIN/TAZOBACTAM 3.375 GM VIAL IVPB ONE ×3 (08:25→17:12)
[2021-01-20] MEDS: NOREPINEPHRINE D5W PREMIX 16,000 MCG/500 ML BAG IVPB SCH (08:28)
[2021-01-20] MEDS: LACTATED RINGERS SOLUTION 1,000 ML/1,000 ML INFUS.BAG IV SCH (08:29)
[2021-01-20] MEDS: ACETAMINOPHEN 325 MG TABLET (FP) PO PRN (08:30)
[2021-01-20] MEDS: ENOXAPARIN NA (PORCINE) 40 MG/0.4 ML DISP.SYRIN SQ SCH ×2 (09:02→22:21)
[2021-01-20] MEDS: DEXAMETHASONE SOD PHOSPHATE 4 MG/1 ML VIAL IVPUSH SCH (09:03)
[2021-01-20] MEDS: FAMOTIDINE 20 MG/50 ML IVPB 20 MG/50 ML MG IVPB SCH (09:27)
[2021-01-20 09:49] LABS: ANISOCYTOSIS 0; MACROCYTOSIS 0; OVALOCYTE 2+; PLATELET ESTIMATE NORMAL; ROULEAU 1+
[2021-01-20] MEDS ORDERED: MIDAZOLAM 100 MG in SODIUM CHLORIDE 100 ML IVPB SCH (11:00)
[2021-01-20] MEDS ORDERED: FUROSEMIDE 40 MG/4 ML INJECTABLE VIAL IVPUSH ONE (11:00)
[2021-01-20] MEDS: CEFAZOLIN 1 GM/D5W 1 GM/50 ML BAG IVPB SCH ×2 (11:43→17:21)
[2021-01-20] MEDS ORDERED: VANCOMYCIN 250 MG/5 ML ORAL SOLUTION PO SCH (12:00)
[2021-01-20] MEDS ORDERED: POLYETHYLENE GLYCOL 3350 119 GM BTL PO SCH (12:44)
[2021-01-20] MEDS ORDERED: MIDAZOLAM 100 MG/100 ML MG IVPB ONE (12:58)
[2021-01-20] MEDS: FENTANYL NS IVPB 500 MCG/100 ML BAG IVPB SCH (14:00)
[2021-01-20] MEDS: VASOPRESSIN 40 UNITS in SODIUM CHLORIDE 98 ML IVPB SCH (15:01)
[2021-01-20] MEDS: POLYETHYLENE GLYCOL 3350 119 GM BTL PO PRN (15:38)
[2021-01-20] MEDS: SENNOSIDES 8.8 MG/5 ML BULK BOTTLE PO SCH (22:21)
[2021-01-20] MEDS: CHLORHEXIDINE GLUCONATE 4% CLEANSER FOR DECOLONIZATION TP SCH (22:22)
[2021-01-20] MEDS: ATORVASTATIN CA 20 MG TABLET (FP) PO SCH (22:22)
[2021-01-21] MEDS: INSULIN SLIDING SCALE (NOVOLOG) 1 VIAL SQ SCH ×4 (00:47→18:08)
[2021-01-21] MEDS: CEFAZOLIN 1 GM/D5W 1 GM/50 ML BAG IVPB SCH ×3 (02:55→17:31)
[2021-01-21] MEDS ORDERED: PIPERACILLIN/TAZOBACTAM 3.375 GM VIAL IVPB ONE ×3 (03:50→17:26)
[2021-01-21] MEDS ORDERED: DEXTROSE 5%-WATER - 50 ML IVPB ONE ×3 (03:50→17:26)
[2021-01-21] MEDS: PIPERACILLIN/TAZOB 3.375 GM 3.375 GM in DEXTROSE 5%-WATER - 50 ML IVPB SCH ×3 (03:52→17:31)
[2021-01-21] MEDS ORDERED: MIDAZOLAM 100 MG/100 ML MG IVPB ONE ×2 (06:44→20:56)
[2021-01-21 07:15] LABS: HEMATOCRIT 34.7 % (32.4-45.2); HEMOGLOBIN 11.4 GM/dL (10.7-15.3); LYMPH % 2.9 % (8-40); MCH 30.4 pg (25.7-33.7); MCHC 32.8 g/dl (32.0-36.0); MEAN CELL VOLUME 92.5 fl (80-96); MEAN PLT VOLUME 10.8 fl (7.5-11.1); MONO % 6.3 % (3.8-10.2); NEUT % 90.8 % (42.8-82.8); PLATELET COUNT 224 K/MM3 (134-434); RBC 3.75 M/mm3 (3.60-5.2)
[2021-01-21 07:49] LABS: CALCIUM 7.6 mg/dL (8.5-10.1)
[2021-01-21 07:50] LABS: ALBUMIN 1.9 g/dl (3.4-5.0); BLOOD UREA NITROGEN 63.4 mg/dL (7-18); MAGNESIUM 2.1 mg/dL (1.8-2.4)
[2021-01-21 07:51] LABS: BILIRUBIN,TOTAL 0.3 mg/dL (0.2-1); TOT PROT 3.9 g/dl (6.4-8.2)
[2021-01-21 07:53] LABS: CREATININE 1.1 mg/dL (0.55-1.3); PHOSPHOROUS 4.4 mg/dL (2.5-4.9)
[2021-01-21 09:17] LABS: ANISOCYTOSIS 1+; MACROCYTOSIS 0; PLATELET ESTIMATE NORMAL; TOXIC GRANULATION 2+
[2021-01-21] MEDS: FAMOTIDINE 20 MG/50 ML IVPB 20 MG/50 ML MG IVPB SCH (10:08)
[2021-01-21] MEDS: DEXAMETHASONE SOD PHOSPHATE 4 MG/1 ML VIAL IVPUSH SCH (10:09)
[2021-01-21] MEDS: ENOXAPARIN NA (PORCINE) 40 MG/0.4 ML DISP.SYRIN SQ SCH ×2 (10:09→21:05)
[2021-01-21] MEDS ORDERED: FUROSEMIDE 40 MG/4 ML INJECTABLE VIAL IVPUSH ONE (11:45)
[2021-01-21] MEDS ORDERED: PT OWN MED DRAWER 7, Y5N ONE ×2 (12:12→20:57)
[2021-01-21] MEDS: VANCOMYCIN/WATER BAGS 1,250 MG/250 ML BAG IVPB SCH (14:01)
[2021-01-21] MEDS: ATORVASTATIN CA 20 MG TABLET (FP) PO SCH (21:04)
[2021-01-21] MEDS: CHLORHEXIDINE GLUCONATE 4% CLEANSER FOR DECOLONIZATION TP SCH (21:04)
[2021-01-21] MEDS: SENNOSIDES 8.8 MG/5 ML BULK BOTTLE PO SCH (21:05)
[2021-01-21] MEDS: FENTANYL NS IVPB 500 MCG/100 ML BAG IVPB SCH (21:06)
[2021-01-21] MEDS: VASOPRESSIN 40 UNITS in SODIUM CHLORIDE 98 ML IVPB SCH (21:06)
[2021-01-22] MEDS: VANCOMYCIN/WATER BAGS 1,250 MG/250 ML BAG IVPB SCH
[2021-01-22] MEDS: PIPERACILLIN/TAZOB 3.375 GM 3.375 GM in DEXTROSE 5%-WATER - 50 ML IVPB SCH ×2 (02:30→09:35)
[2021-01-22] MEDS ORDERED: PIPERACILLIN/TAZOBACTAM 3.375 GM VIAL IVPB ONE ×2 (03:40→07:52)
[2021-01-22] MEDS ORDERED: DEXTROSE 5%-WATER - 50 ML IVPB ONE ×2 (03:40→07:52)
[2021-01-22] MEDS: INSULIN SLIDING SCALE (NOVOLOG) 1 VIAL SQ SCH ×4 (03:59→17:05)
[2021-01-22] MEDS: CEFAZOLIN 1 GM/D5W 1 GM/50 ML BAG IVPB SCH ×3 (04:00→17:06)
[2021-01-22 07:52] LABS: BASO % 0.1 % (0-2.0); HEMATOCRIT 32.2 % (32.4-45.2); HEMOGLOBIN 10.8 GM/dL (10.7-15.3); LYMPH % 3.2 % (8-40); MCHC 33.5 g/dl (32.0-36.0); MEAN CELL VOLUME 92.5 fl (80-96); MEAN PLT VOLUME 10.8 fl (7.5-11.1); MONO % 6.2 % (3.8-10.2); NEUT % 90.5 % (42.8-82.8); PLATELET COUNT 214 K/MM3 (134-434); RBC 3.48 M/mm3 (3.60-5.2); RDW 14.6 % (11.6-15.6); WHITE BLOOD COUNT 26.9 K/mm3 (4.0-10.0)
[2021-01-22 08:08] LABS: ALBUMIN 1.9 g/dl (3.4-5.0)
[2021-01-22 08:09] LABS: CALCIUM 7.6 mg/dL (8.5-10.1)
[2021-01-22 08:10] LABS: BLOOD UREA NITROGEN 79.5 mg/dL (7-18); MAGNESIUM 2.2 mg/dL (1.8-2.4)
[2021-01-22 08:13] LABS: BILIRUBIN,TOTAL 0.3 mg/dL (0.2-1); CREATININE 1.2 mg/dL (0.55-1.3); PHOSPHOROUS 4.9 mg/dL (2.5-4.9); TOT PROT 3.7 g/dl (6.4-8.2)
[2021-01-22] MEDS: FAMOTIDINE 20 MG/50 ML IVPB 20 MG/50 ML MG IVPB SCH (09:35)
[2021-01-22] MEDS: DEXAMETHASONE SOD PHOSPHATE 4 MG/1 ML VIAL IVPUSH SCH (09:36)
[2021-01-22] MEDS: ENOXAPARIN NA (PORCINE) 40 MG/0.4 ML DISP.SYRIN SQ SCH ×2 (09:36→21:31)
[2021-01-22] MEDS ORDERED: DEXAMETHASONE SOD PHOSPHATE 4 MG/1 ML VIAL IVPUSH SCH (10:36)
[2021-01-22] MEDS ORDERED: DEXMEDETOMIDINE IN 0.9 % NACL 400 MCG/100 ML VIAL IVPB SCH (10:45)
[2021-01-22] MEDS ORDERED: PROPOFOL 1,000,000 MCG/100 ML VIAL IVPB SCH (10:45)
[2021-01-22 10:56] LABS: ANISOCYTOSIS 0; MACROCYTOSIS 0; PLATELET ESTIMATE NORMAL
[2021-01-22] MEDS ORDERED: VANCOMYCIN/WATER 1,250 MG/250 ML BAG IVPB SCH (12:00)
[2021-01-22] MEDS ORDERED: MIDAZOLAM 100 MG/100 ML MG IVPB ONE (15:16)
[2021-01-22] MEDS: ATORVASTATIN CA 20 MG TABLET (FP) PO SCH (21:32)
[2021-01-22] MEDS: SENNOSIDES 8.8 MG/5 ML BULK BOTTLE PO SCH (21:32)
[2021-01-22] MEDS: CHLORHEXIDINE GLUCONATE 4% CLEANSER FOR DECOLONIZATION TP SCH (21:33)
[2021-01-22] MEDS: VASOPRESSIN 40 UNITS in SODIUM CHLORIDE 98 ML IVPB SCH (21:33)
[2021-01-23] MEDS: CEFAZOLIN 1 GM/D5W 1 GM/50 ML BAG IVPB SCH ×3 (02:55→17:08)
[2021-01-23] MEDS: INSULIN SLIDING SCALE (NOVOLOG) 1 VIAL SQ SCH ×4 (02:57→17:21)
[2021-01-23 07:18] LABS: BASO % 0.1 % (0-2.0); HEMATOCRIT 34.3 % (32.4-45.2); LYMPH % 5.7 % (8-40); MCH 29.9 pg (25.7-33.7); MCHC 32.2 g/dl (32.0-36.0); MEAN CELL VOLUME 92.8 fl (80-96); MEAN PLT VOLUME 10.6 fl (7.5-11.1); MONO % 7.1 % (3.8-10.2); NEUT % 87.1 % (42.8-82.8); PLATELET COUNT 241 K/MM3 (134-434); RBC 3.69 M/mm3 (3.60-5.2); RDW 15.1 % (11.6-15.6); WHITE BLOOD COUNT 28.5 K/mm3 (4.0-10.0)
[2021-01-23 07:37] LABS: CALCIUM 7.7 mg/dL (8.5-10.1)
[2021-01-23 07:38] LABS: BLOOD UREA NITROGEN 81.5 mg/dL (7-18); MAGNESIUM 2.2 mg/dL (1.8-2.4)
[2021-01-23 07:41] LABS: CREATININE 1.2 mg/dL (0.55-1.3); PHOSPHOROUS 4.3 mg/dL (2.5-4.9)
[2021-01-23 07:42] LABS: BILIRUBIN,TOTAL 0.4 mg/dL (0.2-1)
[2021-01-23] MEDS ORDERED: FUROSEMIDE 40 MG/4 ML INJECTABLE VIAL IVPUSH ONE ×2 (08:01→16:12)
[2021-01-23] MEDS: ENOXAPARIN NA (PORCINE) 40 MG/0.4 ML DISP.SYRIN SQ SCH ×2 (09:10→22:57)
[2021-01-23] MEDS: DEXAMETHASONE SOD PHOSPHATE 4 MG/1 ML VIAL IVPUSH SCH (09:10)
[2021-01-23] MEDS: FAMOTIDINE 20 MG/50 ML IVPB 20 MG/50 ML MG IVPB SCH (09:10)
[2021-01-23 10:00] LABS: ANISOCYTOSIS 1+; MACROCYTOSIS 1+; PLATELET ESTIMATE NORMAL
[2021-01-23 10:40] LABS: ARTERIAL BLD GAS O2 SATURATION 94.4 mmHg (95-98); ARTERIAL BLOOD GAS BASE EXCESS 1.1 mmol/L (-2-2); ARTERIAL BLOOD GAS PO2 68.8 mmHg (80-100); ARTERIAL BLOOD GAS pH 7.439 (7.350-7.450)
[2021-01-23 10:41] LABS: ALLENS TEST POSITIVE; VENT MODE A/C; VENT RATE 16
[2021-01-23] MEDS ORDERED: PT OWN MED DRAWER 7, Y5N ONE (22:56)
[2021-01-23] MEDS: ATORVASTATIN CA 20 MG TABLET (FP) PO SCH (22:57)
[2021-01-23] MEDS: ACETAMINOPHEN 325 MG TABLET (FP) PO PRN (22:57)
[2021-01-23] MEDS: SENNOSIDES 8.8 MG/5 ML BULK BOTTLE PO SCH (22:58)
[2021-01-23] MEDS: CHLORHEXIDINE GLUCONATE 4% CLEANSER FOR DECOLONIZATION TP SCH (22:58)
[2021-01-24] MEDS: INSULIN SLIDING SCALE (NOVOLOG) 1 VIAL SQ SCH ×4 (06:01→17:34)
[2021-01-24] MEDS ORDERED: FUROSEMIDE 40 MG/4 ML INJECTABLE VIAL IVPUSH ONE (07:19)
[2021-01-24] MEDS: NOREPINEPHRINE D5W PREMIX 16,000 MCG/500 ML BAG IVPB SCH (07:25)
[2021-01-24] MEDS: LORazepam 2 MG/ML SDV VIAL IVPUSH PRN ×2 (07:34→11:19)
[2021-01-24 09:01] LABS: HEMATOCRIT 36.7 % (32.4-45.2); HEMOGLOBIN 12.1 GM/dL (10.7-15.3); MCH 30.5 pg (25.7-33.7); MEAN CELL VOLUME 92.4 fl (80-96); MEAN PLT VOLUME 10.7 fl (7.5-11.1); PLATELET COUNT 243 K/MM3 (134-434); RBC 3.97 M/mm3 (3.60-5.2)
[2021-01-24 09:03] LABS: WHITE BLOOD COUNT 31.9 K/mm3 (4.0-10.0)
[2021-01-24 09:04] LABS: ALBUMIN 2.4 g/dl (3.4-5.0); BLOOD UREA NITROGEN 88.6 mg/dL (7-18); CALCIUM 7.9 mg/dL (8.5-10.1); MAGNESIUM 2.4 mg/dL (1.8-2.4)
[2021-01-24 09:07] LABS: CREATININE 1.3 mg/dL (0.55-1.3)
[2021-01-24 09:08] LABS: PHOSPHOROUS 4.3 mg/dL (2.5-4.9)
[2021-01-24 09:09] LABS: BILIRUBIN,TOTAL 0.7 mg/dL (0.2-1); TOT PROT 4.8 g/dl (6.4-8.2)
[2021-01-24] MEDS: FAMOTIDINE 20 MG/50 ML IVPB 20 MG/50 ML MG IVPB SCH (09:15)
[2021-01-24] MEDS: DEXAMETHASONE SOD PHOSPHATE 4 MG/1 ML VIAL IVPUSH SCH (09:15)
[2021-01-24] MEDS: ENOXAPARIN NA (PORCINE) 40 MG/0.4 ML DISP.SYRIN SQ SCH ×2 (09:15→21:34)
[2021-01-24] MEDS ORDERED: DEXTROSE 5%-WATER - 50 ML IVPB ONE ×2 (09:17→17:14)
[2021-01-24] MEDS ORDERED: PIPERACILLIN/TAZOBACTAM 3.375 GM VIAL IVPB ONE ×2 (09:17→17:14)
[2021-01-24] MEDS: PIPERACILLIN/TAZOB 3.375 GM 3.375 GM in DEXTROSE 5%-WATER - 50 ML IVPB SCH ×2 (09:29→17:27)
[2021-01-24] MEDS: ACETAMINOPHEN 325 MG TABLET (FP) PO PRN (10:03)
[2021-01-24] MEDS ORDERED: ACETAMINOPHEN 1000 MG/100 ML VIAL (NON FORMULARY) IVPB ONE (16:23)
[2021-01-24] MEDS: CHLORHEXIDINE GLUCONATE 4% CLEANSER FOR DECOLONIZATION TP SCH (21:34)
[2021-01-24] MEDS: ATORVASTATIN CA 20 MG TABLET (FP) PO SCH (21:35)
[2021-01-24] MEDS ORDERED: VANCOMYCIN 1 GRAM (PRE-DOCKED) 1,000 MG/250 ML BAG IVPB ONE (22:00)
[2021-01-24] MEDS: SENNOSIDES 8.8 MG/5 ML BULK BOTTLE PO SCH (22:25)
[2021-01-25] MEDS ORDERED: DEXTROSE 5%-WATER - 50 ML IVPB ONE ×4 (00:46→23:54)
[2021-01-25] MEDS ORDERED: PIPERACILLIN/TAZOBACTAM 3.375 GM VIAL IVPB ONE ×4 (00:46→23:54)
[2021-01-25] MEDS: INSULIN SLIDING SCALE (NOVOLOG) 1 VIAL SQ SCH ×4 (01:06→17:02)
[2021-01-25] MEDS: PIPERACILLIN/TAZOB 3.375 GM 3.375 GM in DEXTROSE 5%-WATER - 50 ML IVPB SCH ×3 (01:07→17:01)
[2021-01-25 07:29] LABS: BASO % 0.1 % (0-2.0); EOS % 0.1 % (0-4.5); HEMATOCRIT 32.4 % (32.4-45.2); HEMOGLOBIN 10.8 GM/dL (10.7-15.3); LYMPH % 4.2 % (8-40); MCH 30.8 pg (25.7-33.7); MCHC 33.3 g/dl (32.0-36.0); MEAN CELL VOLUME 92.4 fl (80-96); MEAN PLT VOLUME 10.8 fl (7.5-11.1); NEUT % 89.6 % (42.8-82.8); PLATELET COUNT 209 K/MM3 (134-434); RBC 3.51 M/mm3 (3.60-5.2); RDW 14.8 % (11.6-15.6)
[2021-01-25 07:37] LABS: CALCIUM 7.7 mg/dL (8.5-10.1)
[2021-01-25 07:38] LABS: ALBUMIN 2.3 g/dl (3.4-5.0); BLOOD UREA NITROGEN 89.7 mg/dL (7-18); MAGNESIUM 2.4 mg/dL (1.8-2.4)
[2021-01-25 07:41] LABS: CREATININE 1.7 mg/dL (0.55-1.3)
[2021-01-25 07:43] LABS: BILIRUBIN,TOTAL 0.7 mg/dL (0.2-1); TOT PROT 4.6 g/dl (6.4-8.2)
[2021-01-25 08:28] LABS: WHITE BLOOD COUNT 37.4 K/mm3 (4.0-10.0)
[2021-01-25] MEDS: LORazepam 2 MG/ML SDV VIAL IVPUSH PRN ×2 (08:36→21:23)
[2021-01-25] MEDS: NOREPINEPHRINE D5W PREMIX 16,000 MCG/500 ML BAG IVPB SCH (09:10)
[2021-01-25] MEDS: DEXAMETHASONE SOD PHOSPHATE 4 MG/1 ML VIAL IVPUSH SCH (09:11)
[2021-01-25] MEDS: ENOXAPARIN NA (PORCINE) 40 MG/0.4 ML DISP.SYRIN SQ SCH ×2 (09:11→21:22)
[2021-01-25] MEDS: FAMOTIDINE 20 MG/50 ML IVPB 20 MG/50 ML MG IVPB SCH (09:12)
[2021-01-25] MEDS: ACETAMINOPHEN 325 MG TABLET (FP) PO PRN (10:04)
[2021-01-25] MEDS: SODIUM CHLORIDE 1,000 ML IV SCH (10:50)
[2021-01-25 13:02] LABS: ANISOCYTOSIS 0; MACROCYTOSIS 0; PLATELET ESTIMATE NORMAL; ROULEAU 1+
[2021-01-25] MEDS ORDERED: MORPHINE SULFATE 2 MG/ML VIAL IVPUSH PRN (15:28)
[2021-01-25] MEDS ORDERED: PT OWN MED DRAWER 7, Y5N ONE (20:39)
[2021-01-25] MEDS: SENNOSIDES 8.8 MG/5 ML BULK BOTTLE PO SCH (21:22)
[2021-01-25] MEDS: CHLORHEXIDINE GLUCONATE 4% CLEANSER FOR DECOLONIZATION TP SCH (21:22)
[2021-01-25] MEDS: POLYETHYLENE GLYCOL 3350 119 GM BTL PO PRN (21:23)
[2021-01-25] MEDS: ATORVASTATIN CA 20 MG TABLET (FP) PO SCH (21:23)
[2021-01-25] MEDS ORDERED: DEXMEDETOMIDINE IN 0.9 % NACL 200 MCG/50 ML EACH IVPB SCH (21:45)
[2021-01-25] MEDS ORDERED: PROPOFOL 1,000,000 MCG/100 ML VIAL IVPB SCH (21:45)
[2021-01-26] MEDS: INSULIN SLIDING SCALE (NOVOLOG) 1 VIAL SQ SCH ×5 (00:43→23:40)
[2021-01-26] MEDS: PIPERACILLIN/TAZOB 3.375 GM 3.375 GM in DEXTROSE 5%-WATER - 50 ML IVPB SCH ×3 (01:42→18:34)
[2021-01-26] MEDS: MIDAZOLAM 100 MG/100 ML MG IVPB SCH ×2 (01:43→23:40)
[2021-01-26] MEDS: NOREPINEPHRINE D5W PREMIX 16,000 MCG/500 ML BAG IVPB SCH (01:51)
[2021-01-26 07:03] LABS: HEMATOCRIT 23.9 % (32.4-45.2); HEMOGLOBIN 7.9 GM/dL (10.7-15.3); MCH 30.5 pg (25.7-33.7); MCHC 32.9 g/dl (32.0-36.0); MEAN CELL VOLUME 92.4 fl (80-96); PLATELET COUNT 143 K/MM3 (134-434); RBC 2.59 M/mm3 (3.60-5.2); RDW 14.7 % (11.6-15.6)
[2021-01-26 07:22] LABS: CHLORIDE 111 mmol/L (98-107); SODIUM 144 mmol/L (136-145)
[2021-01-26 07:25] LABS: CALCIUM 7.4 mg/dL (8.5-10.1)
[2021-01-26 07:26] LABS: ALBUMIN 1.9 g/dl (3.4-5.0); BLOOD UREA NITROGEN 78.6 mg/dL (7-18); GLUCOSE,RANDOM 213 mg/dL (74-106); MAGNESIUM 2.3 mg/dL (1.8-2.4)
[2021-01-26 07:28] LABS: ANION GAP 4 MMOL/L (8-16); CO2 28 mmol/L (21-32)
[2021-01-26 07:29] LABS: CREATININE 1.1 mg/dL (0.55-1.3); PHOSPHOROUS 3.1 mg/dL (2.5-4.9); SGOT/AST 30 U/L (15-37); SGPT/ALT 15 U/L (13-61)
[2021-01-26 07:30] LABS: BILIRUBIN,TOTAL 0.8 mg/dL (0.2-1); TOT PROT 3.7 g/dl (6.4-8.2)
[2021-01-26 07:31] LABS: ALK PHOS 61 U/L (45-117)
[2021-01-26] MEDS ORDERED: DEXTROSE 5%-WATER - 50 ML IVPB ONE (10:42)
[2021-01-26] MEDS ORDERED: PIPERACILLIN/TAZOBACTAM 3.375 GM VIAL IVPB ONE (10:42)
[2021-01-26] MEDS: DEXAMETHASONE SOD PHOSPHATE 4 MG/1 ML VIAL IVPUSH SCH (10:50)
[2021-01-26] MEDS: FAMOTIDINE 20 MG/50 ML IVPB 20 MG/50 ML MG IVPB SCH (10:50)
[2021-01-26] MEDS: ENOXAPARIN NA (PORCINE) 40 MG/0.4 ML DISP.SYRIN SQ SCH ×2 (10:50→23:40)
[2021-01-26] MEDS ORDERED: METOPROLOL TARTRATE 5 MG/5 ML VIAL IVPUSH ONE (12:46)
[2021-01-26] MEDS: PROPOFOL 1,000,000 MCG/100 ML VIAL IVPB SCH (12:55)
[2021-01-26] MEDS: SODIUM CHLORIDE 1,000 ML IV SCH (14:15)
[2021-01-26 16:58] LABS: CHOLESTEROL 126 mg/dL (50-200); TRIGLYCERIDES 145 mg/dL (0-150)
[2021-01-26 17:00] LABS: LDL CHOLESTEROL (ONLY SJRH) 77 mg/dL (5-100)
[2021-01-26 17:01] LABS: HDL CHOLESTEROL 28 mg/dL (40-60)
[2021-01-26] MEDS: CHLORHEXIDINE GLUCONATE 4% CLEANSER FOR DECOLONIZATION TP SCH (23:40)
[2021-01-26] MEDS: ATORVASTATIN CA 20 MG TABLET (FP) PO SCH (23:40)
[2021-01-26] MEDS: SENNOSIDES 8.8 MG/5 ML BULK BOTTLE PO SCH (23:40)
[2021-01-27] MEDS ORDERED: PIPERACILLIN/TAZOBACTAM 3.375 GM VIAL IVPB ONE ×3 (00:16→18:51)
[2021-01-27] MEDS ORDERED: DEXTROSE 5%-WATER - 50 ML IVPB ONE ×3 (00:16→18:51)
[2021-01-27] MEDS: PIPERACILLIN/TAZOB 3.375 GM 3.375 GM in DEXTROSE 5%-WATER - 50 ML IVPB SCH ×3 (01:01→19:01)
[2021-01-27] MEDS: INSULIN SLIDING SCALE (NOVOLOG) 1 VIAL SQ SCH ×3 (05:48→19:00)
[2021-01-27 08:16] LABS: ALBUMIN 1.9 g/dl (3.4-5.0); CREATININE 0.9 mg/dL (0.55-1.3)
[2021-01-27 08:18] LABS: BILIRUBIN,TOTAL 0.4 mg/dL (0.2-1); BLOOD UREA NITROGEN 72.8 mg/dL (7-18)
[2021-01-27 08:19] LABS: TOT PROT 3.6 g/dl (6.4-8.2)
[2021-01-27 08:20] LABS: PHOSPHOROUS 3.5 mg/dL (2.5-4.9)
[2021-01-27 08:22] LABS: CALCIUM 7.5 mg/dL (8.5-10.1); MAGNESIUM 2.4 mg/dL (1.8-2.4)
[2021-01-27 08:26] LABS: HEMATOCRIT 21.7 % (32.4-45.2); HEMOGLOBIN 7.1 GM/dL (10.7-15.3); MCH 30.4 pg (25.7-33.7); MCHC 32.9 g/dl (32.0-36.0); MEAN CELL VOLUME 92.6 fl (80-96); PLATELET COUNT 153 K/MM3 (134-434); RBC 2.35 M/mm3 (3.60-5.2); RDW 14.5 % (11.6-15.6); WHITE BLOOD COUNT 29.5 K/mm3 (4.0-10.0)
[2021-01-27] MEDS: FAMOTIDINE 20 MG/50 ML IVPB 20 MG/50 ML MG IVPB SCH (11:12)
[2021-01-27] MEDS: SODIUM CHLORIDE 1,000 ML IV SCH (11:12)
[2021-01-27] MEDS: DEXAMETHASONE SOD PHOSPHATE 4 MG/1 ML VIAL IVPUSH SCH (11:12)
[2021-01-27] MEDS: ENOXAPARIN NA (PORCINE) 40 MG/0.4 ML DISP.SYRIN SQ SCH ×2 (11:12→21:52)
[2021-01-27] MEDS ORDERED: FUROSEMIDE 40 MG/4 ML INJECTABLE VIAL IVPUSH ONE (11:15)
[2021-01-27] MEDS: PROPOFOL 1,000,000 MCG/100 ML VIAL IVPB SCH (14:04)
[2021-01-27] MEDS: DEXMEDETOMIDINE IN 0.9 % NACL 400 MCG/100 ML VIAL IVPB SCH (20:35)
[2021-01-27] MEDS ORDERED: PT OWN MED DRAWER 7, Y5N ONE (21:50)
[2021-01-27] MEDS: CHLORHEXIDINE GLUCONATE 4% CLEANSER FOR DECOLONIZATION TP SCH (21:53)
[2021-01-27] MEDS: SENNOSIDES 8.8 MG/5 ML BULK BOTTLE PO SCH (21:53)
[2021-01-27] MEDS: ATORVASTATIN CA 20 MG TABLET (FP) PO SCH (21:53)
[2021-01-28] MEDS ORDERED: DEXTROSE 5%-WATER - 50 ML IVPB ONE ×3 (00:38→18:05)
[2021-01-28] MEDS ORDERED: PIPERACILLIN/TAZOBACTAM 3.375 GM VIAL IVPB ONE ×3 (00:38→18:05)
[2021-01-28] MEDS: INSULIN SLIDING SCALE (NOVOLOG) 1 VIAL SQ SCH ×5 (00:51→23:10)
[2021-01-28] MEDS: PIPERACILLIN/TAZOB 3.375 GM 3.375 GM in DEXTROSE 5%-WATER - 50 ML IVPB SCH ×3 (00:59→18:16)
[2021-01-28 07:07] LABS: HEMATOCRIT 22.2 % (32.4-45.2); HEMOGLOBIN 7.2 GM/dL (10.7-15.3); MCH 30.4 pg (25.7-33.7); MCHC 32.7 g/dl (32.0-36.0); MEAN CELL VOLUME 93.1 fl (80-96); MEAN PLT VOLUME 10.6 fl (7.5-11.1); PLATELET COUNT 129 K/MM3 (134-434); RBC 2.38 M/mm3 (3.60-5.2); RDW 14.5 % (11.6-15.6); WHITE BLOOD COUNT 15.4 K/mm3 (4.0-10.0)
[2021-01-28 07:14] LABS: CHLORIDE 113 mmol/L (98-107); SODIUM 145 mmol/L (136-145)
[2021-01-28 07:24] LABS: ANION GAP 5 MMOL/L (8-16); BLOOD UREA NITROGEN 58.5 mg/dL (7-18); CALCIUM 7.2 mg/dL (8.5-10.1); CO2 27 mmol/L (21-32)
[2021-01-28 07:25] LABS: ALBUMIN 1.8 g/dl (3.4-5.0); GLUCOSE,RANDOM 192 mg/dL (74-106); MAGNESIUM 2.3 mg/dL (1.8-2.4)
[2021-01-28 07:26] LABS: CREATININE 0.7 mg/dL (0.55-1.3)
[2021-01-28 07:27] LABS: PHOSPHOROUS 3.3 mg/dL (2.5-4.9); SGOT/AST 33 U/L (15-37); SGPT/ALT 21 U/L (13-61)
[2021-01-28 07:28] LABS: BILIRUBIN,TOTAL 0.5 mg/dL (0.2-1); TOT PROT 3.5 g/dl (6.4-8.2)
[2021-01-28 07:29] LABS: ALK PHOS 68 U/L (45-117)
[2021-01-28] MEDS: DEXAMETHASONE SOD PHOSPHATE 4 MG/1 ML VIAL IVPUSH SCH (09:42)
[2021-01-28] MEDS: FAMOTIDINE 20 MG/50 ML IVPB 20 MG/50 ML MG IVPB SCH (09:42)
[2021-01-28 09:59] LABS: IRON SERUM 51 ug/dL (50-175)
[2021-01-28 10:00] LABS: TOTAL IRON BINDING CAPACITY 165 ug/dL (250-450)
[2021-01-28 10:33] LABS: RETICULOCYTES 1.37 % (0.5-1.5)
[2021-01-28] MEDS: SODIUM CHLORIDE 1,000 ML IV SCH (10:49)
[2021-01-28] MEDS: ENOXAPARIN NA (PORCINE) 40 MG/0.4 ML DISP.SYRIN SQ SCH ×2 (11:26→22:56)
[2021-01-28] MEDS ORDERED: LOSARTAN POTASSIUM 50 MG TABLET GT ONE (12:18)
[2021-01-28] MEDS: PROPOFOL 1,000,000 MCG/100 ML VIAL IVPB SCH (13:12)
[2021-01-28] MEDS: ATORVASTATIN CA 20 MG TABLET (FP) PO SCH (22:56)
[2021-01-28] MEDS: CHLORHEXIDINE GLUCONATE 4% CLEANSER FOR DECOLONIZATION TP SCH (22:56)
[2021-01-28] MEDS: SENNOSIDES 8.8 MG/5 ML BULK BOTTLE PO SCH (22:56)
[2021-01-28] MEDS: DEXMEDETOMIDINE IN 0.9 % NACL 400 MCG/100 ML VIAL IVPB SCH (23:10)
[2021-01-29] MEDS ORDERED: DEXTROSE 5%-WATER - 50 ML IVPB ONE ×3 (00:39→17:04)
[2021-01-29] MEDS ORDERED: PIPERACILLIN/TAZOBACTAM 3.375 GM VIAL IVPB ONE ×3 (00:39→17:04)
[2021-01-29] MEDS: PIPERACILLIN/TAZOB 3.375 GM 3.375 GM in DEXTROSE 5%-WATER - 50 ML IVPB SCH ×3 (02:04→17:17)
[2021-01-29] MEDS: DEXMEDETOMIDINE IN 0.9 % NACL 400 MCG/100 ML VIAL IVPB SCH ×2 (02:07→20:30)
[2021-01-29] MEDS: INSULIN SLIDING SCALE (NOVOLOG) 1 VIAL SQ SCH ×3 (05:47→17:17)
[2021-01-29 06:38] LABS: HEMATOCRIT 23.3 % (32.4-45.2); HEMOGLOBIN 7.6 GM/dL (10.7-15.3); MCH 30.6 pg (25.7-33.7); MCHC 32.7 g/dl (32.0-36.0); MEAN CELL VOLUME 93.4 fl (80-96); MEAN PLT VOLUME 9.9 fl (7.5-11.1); PLATELET COUNT 135 K/MM3 (134-434); WHITE BLOOD COUNT 18.2 K/mm3 (4.0-10.0)
[2021-01-29 06:59] LABS: CHLORIDE 112 mmol/L (98-107); SODIUM 144 mmol/L (136-145)
[2021-01-29 07:02] LABS: CALCIUM 7.3 mg/dL (8.5-10.1)
[2021-01-29 07:03] LABS: ANION GAP 6 MMOL/L (8-16); BLOOD UREA NITROGEN 46.7 mg/dL (7-18); CO2 27 mmol/L (21-32); GLUCOSE,RANDOM 185 mg/dL (74-106); MAGNESIUM 2.2 mg/dL (1.8-2.4)
[2021-01-29 07:04] LABS: SGPT/ALT 26 U/L (13-61)
[2021-01-29 07:06] LABS: BILIRUBIN,TOTAL 0.6 mg/dL (0.2-1); CREATININE 0.7 mg/dL (0.55-1.3); PHOSPHOROUS 2.7 mg/dL (2.5-4.9); SGOT/AST 39 U/L (15-37); TOT PROT 3.9 g/dl (6.4-8.2)
[2021-01-29 07:07] LABS: ALK PHOS 81 U/L (45-117)
[2021-01-29] MEDS: DEXAMETHASONE SOD PHOSPHATE 4 MG/1 ML VIAL IVPUSH SCH (10:05)
[2021-01-29] MEDS: ENOXAPARIN NA (PORCINE) 40 MG/0.4 ML DISP.SYRIN SQ SCH ×2 (10:06→21:38)
[2021-01-29] MEDS: SODIUM CHLORIDE 1,000 ML IV SCH (10:06)
[2021-01-29] MEDS: FAMOTIDINE 20 MG/50 ML IVPB 20 MG/50 ML MG IVPB SCH (10:06)
[2021-01-29] MEDS: LOSARTAN POTASSIUM 50 MG TABLET GT SCH (10:08)
[2021-01-29] MEDS ORDERED: MORPHINE SULFATE 2 MG/ML VIAL IVPUSH ONE (14:11)
[2021-01-29] MEDS ORDERED: MORPHINE SULFATE 2 MG/ML VIAL ONE (14:11)
[2021-01-29] MEDS: PROPOFOL 1,000,000 MCG/100 ML VIAL IVPB SCH (14:18)
[2021-01-29] MEDS ORDERED: hydrALAZINE HCL 20 MG/ML VIAL IVPUSH PRN (15:09)
[2021-01-29] MEDS ORDERED: ACETAMINOPHEN 1000 MG/100 ML VIAL (NON FORMULARY) IVPB ONE (16:45)
[2021-01-29] MEDS: SENNOSIDES 8.8 MG/5 ML BULK BOTTLE PO SCH (21:38)
[2021-01-29] MEDS: ATORVASTATIN CA 20 MG TABLET (FP) PO SCH (21:38)
[2021-01-29] MEDS: CHLORHEXIDINE GLUCONATE 4% CLEANSER FOR DECOLONIZATION TP SCH (21:38)
[2021-01-30] MEDS: INSULIN SLIDING SCALE (NOVOLOG) 1 VIAL SQ SCH ×4 (00:28→17:48)
[2021-01-30] MEDS ORDERED: PIPERACILLIN/TAZOBACTAM 3.375 GM VIAL IVPB ONE ×3 (01:09→15:15)
[2021-01-30] MEDS ORDERED: DEXTROSE 5%-WATER - 50 ML IVPB ONE ×3 (01:10→15:16)
[2021-01-30] MEDS: PIPERACILLIN/TAZOB 3.375 GM 3.375 GM in DEXTROSE 5%-WATER - 50 ML IVPB SCH ×3 (01:15→17:48)
[2021-01-30 07:07] LABS: ALBUMIN 2.1 g/dl (3.4-5.0); BLOOD UREA NITROGEN 36.7 mg/dL (7-18); CALCIUM 7.2 mg/dL (8.5-10.1); MAGNESIUM 1.9 mg/dL (1.8-2.4)
[2021-01-30 07:08] LABS: HEMATOCRIT 22.8 % (32.4-45.2); HEMOGLOBIN 7.6 GM/dL (10.7-15.3); MCH 30.8 pg (25.7-33.7); MCHC 33.2 g/dl (32.0-36.0); MEAN CELL VOLUME 92.9 fl (80-96); MEAN PLT VOLUME 10.5 fl (7.5-11.1); PLATELET COUNT 132 K/MM3 (134-434); RBC 2.46 M/mm3 (3.60-5.2); RDW 14.8 % (11.6-15.6); WHITE BLOOD COUNT 20.9 K/mm3 (4.0-10.0)
[2021-01-30 07:11] LABS: BILIRUBIN,TOTAL 0.8 mg/dL (0.2-1); CREATININE 0.5 mg/dL (0.55-1.3); TOT PROT 3.8 g/dl (6.4-8.2)
[2021-01-30] MEDS: FAMOTIDINE 20 MG/50 ML IVPB 20 MG/50 ML MG IVPB SCH (10:36)
[2021-01-30] MEDS: ENOXAPARIN NA (PORCINE) 40 MG/0.4 ML DISP.SYRIN SQ SCH ×2 (10:36→21:13)
[2021-01-30] MEDS: DEXAMETHASONE SOD PHOSPHATE 4 MG/1 ML VIAL IVPUSH SCH (10:36)
[2021-01-30] MEDS: SODIUM CHLORIDE 1,000 ML IV SCH ×2 (10:38→11:17)
[2021-01-30] MEDS: LOSARTAN POTASSIUM 50 MG TABLET GT SCH (10:38)
[2021-01-30] MEDS ORDERED: FUROSEMIDE 40 MG/4 ML INJECTABLE VIAL IVPUSH ONE ×2 (15:04→21:49)
[2021-01-30] MEDS ORDERED: FUROSEMIDE 40 MG/4 ML INJECTABLE VIAL ONE (15:15)
[2021-01-30 20:53] LABS: CALCIUM 7.6 mg/dL (8.5-10.1)
[2021-01-30 20:54] LABS: BLOOD UREA NITROGEN 30.1 mg/dL (7-18)
[2021-01-30 20:56] LABS: CREATININE 0.6 mg/dL (0.55-1.3)
[2021-01-30 20:57] LABS: PHOSPHOROUS 3.1 mg/dL (2.5-4.9)
[2021-01-30 20:58] LABS: BILIRUBIN,TOTAL 0.8 mg/dL (0.2-1); TOT PROT 4.8 g/dl (6.4-8.2)
[2021-01-30] MEDS: CHLORHEXIDINE GLUCONATE 4% CLEANSER FOR DECOLONIZATION TP SCH (21:11)
[2021-01-30] MEDS: ATORVASTATIN CA 20 MG TABLET (FP) PO SCH (21:12)
[2021-01-30] MEDS: SENNOSIDES 8.8 MG/5 ML BULK BOTTLE PO SCH (21:12)
[2021-01-30 21:50] LABS: ALBUMIN 2.6 g/dl (3.4-5.0)
[2021-01-31] MEDS ORDERED: PIPERACILLIN/TAZOBACTAM 3.375 GM VIAL IVPB ONE ×2 (00:17→07:35)
[2021-01-31] MEDS ORDERED: DEXTROSE 5%-WATER - 50 ML IVPB ONE ×2 (00:17→07:36)
[2021-01-31] MEDS: INSULIN SLIDING SCALE (NOVOLOG) 1 VIAL SQ SCH ×4 (00:17→18:38)
[2021-01-31] MEDS: PIPERACILLIN/TAZOB 3.375 GM 3.375 GM in DEXTROSE 5%-WATER - 50 ML IVPB SCH (01:01)
[2021-01-31 06:01] LABS: BASO % 0.5 % (0-2.0); EOS % 2.7 % (0-4.5); HEMATOCRIT 26.4 % (32.4-45.2); HEMOGLOBIN 8.8 GM/dL (10.7-15.3); LYMPH % 6.2 % (8-40); MCH 31.1 pg (25.7-33.7); MCHC 33.2 g/dl (32.0-36.0); MEAN CELL VOLUME 93.7 fl (80-96); MEAN PLT VOLUME 9.5 fl (7.5-11.1); MONO % 3.3 % (3.8-10.2); NEUT % 87.3 % (42.8-82.8); PLATELET COUNT 162 K/MM3 (134-434); RBC 2.82 M/mm3 (3.60-5.2); RDW 15.5 % (11.6-15.6); WHITE BLOOD COUNT 23.1 K/mm3 (4.0-10.0)
[2021-01-31 06:17] LABS: CALCIUM 7.5 mg/dL (8.5-10.1)
[2021-01-31 06:18] LABS: ALBUMIN 2.4 g/dl (3.4-5.0); MAGNESIUM 1.9 mg/dL (1.8-2.4)
[2021-01-31 06:21] LABS: CREATININE 0.5 mg/dL (0.55-1.3); PHOSPHOROUS 3.1 mg/dL (2.5-4.9)
[2021-01-31 06:23] LABS: BILIRUBIN,TOTAL 0.7 mg/dL (0.2-1); TOT PROT 4.5 g/dl (6.4-8.2)
[2021-01-31 09:39] LABS: ANISOCYTOSIS 0; MACROCYTOSIS 0; PLATELET ESTIMATE DECREASED
[2021-01-31] MEDS ORDERED: DEXAMETHASONE SOD PHOSPHATE 4 MG/1 ML VIAL IVPUSH SCH (10:00)
[2021-01-31] MEDS: ENOXAPARIN NA (PORCINE) 40 MG/0.4 ML DISP.SYRIN SQ SCH (10:53)
[2021-01-31] MEDS: FAMOTIDINE 20 MG/50 ML IVPB 20 MG/50 ML MG IVPB SCH (10:54)
[2021-01-31] MEDS: SODIUM CHLORIDE 1,000 ML IV SCH (10:54)
[2021-01-31] MEDS: LOSARTAN POTASSIUM 50 MG TABLET GT SCH (10:54)
[2021-01-31] MEDS: FUROSEMIDE 40 MG/4 ML INJECTABLE VIAL IVPUSH SCH (17:45)
[2021-02-01] MEDS: INSULIN SLIDING SCALE (NOVOLOG) 1 VIAL SQ SCH ×4 (00:01→18:40)
[2021-02-01] MEDS: ATORVASTATIN CA 20 MG TABLET (FP) PO SCH ×2 (00:01→22:24)
[2021-02-01] MEDS: SENNOSIDES 8.8 MG/5 ML BULK BOTTLE PO SCH ×2 (00:01→22:25)
[2021-02-01] MEDS: CHLORHEXIDINE GLUCONATE 4% CLEANSER FOR DECOLONIZATION TP SCH (00:01)
[2021-02-01] MEDS: ENOXAPARIN NA (PORCINE) 40 MG/0.4 ML DISP.SYRIN SQ SCH (00:01)
[2021-02-01] MEDS: FAMOTIDINE 20 MG/50 ML IVPB 20 MG/50 ML MG IVPB SCH (10:29)
[2021-02-01] MEDS: FUROSEMIDE 40 MG/4 ML INJECTABLE VIAL IVPUSH SCH (10:29)
[2021-02-01] MEDS: LOSARTAN POTASSIUM 50 MG TABLET GT SCH (10:49)
[2021-02-01] MEDS ORDERED: DOCUSATE NA 100 MG/10 ML UNIT-DOSE CUPS PO PRN (19:45)
[2021-02-01] MEDS ORDERED: POLYETHYLENE GLYCOL 3350 119 GM BTL PO PRN (19:45)
[2021-02-01] MEDS ORDERED: ACETAMINOPHEN 325 MG TABLET (FP) PO PRN (19:45)
[2021-02-01] MEDS ORDERED: hydrALAZINE HCL 20 MG/ML VIAL IVPUSH PRN (19:45)
[2021-02-01] MEDS: KCL 10 MEQ IVPB 10 MEQ/100 ML INFUS.BAG IVPB SCH ×3 (20:15→22:29)
[2021-02-01] MEDS ORDERED: CHLORHEXIDINE GLUCONATE 4% CLEANSER FOR DECOLONIZATION TP SCH (22:00)
[2021-02-02] MEDS: INSULIN SLIDING SCALE (NOVOLOG) 1 VIAL SQ SCH ×5 (00:23→23:51)
[2021-02-02] MEDS: LOSARTAN POTASSIUM 50 MG TABLET GT SCH (10:19)
[2021-02-02] MEDS: FAMOTIDINE 20 MG/50 ML IVPB 20 MG/50 ML MG IVPB SCH (10:20)
[2021-02-02] MEDS: FUROSEMIDE 40 MG/4 ML INJECTABLE VIAL IVPUSH SCH (10:21)
[2021-02-02 12:05] LABS: BASO % 0.3 % (0-2.0); HEMATOCRIT 28.4 % (32.4-45.2); HEMOGLOBIN 9.4 GM/dL (10.7-15.3); LYMPH % 3.6 % (8-40); MCH 31.6 pg (25.7-33.7); MCHC 33.2 g/dl (32.0-36.0); MEAN CELL VOLUME 95.2 fl (80-96); MEAN PLT VOLUME 9.1 fl (7.5-11.1); MONO % 3.5 % (3.8-10.2); NEUT % 91.6 % (42.8-82.8); PLATELET COUNT 171 K/MM3 (134-434); RBC 2.99 M/mm3 (3.60-5.2); WHITE BLOOD COUNT 19.1 K/mm3 (4.0-10.0)
[2021-02-02 12:20] LABS: CHLORIDE 110 mmol/L (98-107); SODIUM 146 mmol/L (136-145)
[2021-02-02 12:22] LABS: ALBUMIN 2.7 g/dl (3.4-5.0); ANION GAP 8 MMOL/L (8-16); BLOOD UREA NITROGEN 26.8 mg/dL (7-18); CALCIUM 8.1 mg/dL (8.5-10.1); CO2 28 mmol/L (21-32); GLUCOSE,RANDOM 167 mg/dL (74-106)
[2021-02-02 12:25] LABS: CREATININE 0.5 mg/dL (0.55-1.3); SGOT/AST 76 U/L (15-37); SGPT/ALT 72 U/L (13-61)
[2021-02-02 12:26] LABS: BILIRUBIN,TOTAL 0.7 mg/dL (0.2-1)
[2021-02-02] MEDS: POTASSIUM CHLORIDE ORAL LIQUID 20 MEQ/15 ML NGT SCH ×2 (13:27→21:45)
[2021-02-02 13:45] LABS: ALK PHOS 121 U/L (45-117)
[2021-02-02 14:51] LABS: ANISOCYTOSIS 1+; MACROCYTOSIS 0; PLATELET ESTIMATE NORMAL
[2021-02-02] MEDS: SENNOSIDES 8.8 MG/5 ML BULK BOTTLE PO SCH (21:45)
[2021-02-02] MEDS: ATORVASTATIN CA 20 MG TABLET (FP) PO SCH (21:46)
[2021-02-03] MEDS: ACETAMINOPHEN 650 MG/20.3 ML ORAL SOLUTION (CUPS) NGT PRN ×2 (01:57→21:36)
[2021-02-03] MEDS: INSULIN SLIDING SCALE (NOVOLOG) 1 VIAL SQ SCH ×3 (05:51→17:01)
[2021-02-03 06:49] LABS: BASO % 0.1 % (0-2.0); EOS % 3.6 % (0-4.5); HEMOGLOBIN 8.8 GM/dL (10.7-15.3); LYMPH % 5.8 % (8-40); MCH 31.8 pg (25.7-33.7); MCHC 32.7 g/dl (32.0-36.0); MEAN CELL VOLUME 97.2 fl (80-96); MEAN PLT VOLUME 8.5 fl (7.5-11.1); MONO % 3.8 % (3.8-10.2); NEUT % 86.7 % (42.8-82.8); PLATELET COUNT 136 K/MM3 (134-434); RBC 2.78 M/mm3 (3.60-5.2); RDW 18.7 % (11.6-15.6); WHITE BLOOD COUNT 20.5 K/mm3 (4.0-10.0)
[2021-02-03 07:05] LABS: CHLORIDE 113 mmol/L (98-107); SODIUM 147 mmol/L (136-145)
[2021-02-03 07:10] LABS: ALBUMIN 2.7 g/dl (3.4-5.0); ANION GAP 4 MMOL/L (8-16); BLOOD UREA NITROGEN 31.4 mg/dL (7-18); CALCIUM 7.6 mg/dL (8.5-10.1); CO2 30 mmol/L (21-32); GLUCOSE,RANDOM 170 mg/dL (74-106); MAGNESIUM 1.9 mg/dL (1.8-2.4)
[2021-02-03 07:13] LABS: CREATININE 0.6 mg/dL (0.55-1.3); SGOT/AST 62 U/L (15-37); SGPT/ALT 65 U/L (13-61)
[2021-02-03 07:15] LABS: BILIRUBIN,TOTAL 0.5 mg/dL (0.2-1); TOT PROT 4.7 g/dl (6.4-8.2)
[2021-02-03 07:16] LABS: ALK PHOS 127 U/L (45-117)
[2021-02-03] MEDS: FAMOTIDINE 20 MG/50 ML IVPB 20 MG/50 ML MG IVPB SCH (10:08)
[2021-02-03] MEDS: FUROSEMIDE 40 MG/4 ML INJECTABLE VIAL IVPUSH SCH (10:08)
[2021-02-03] MEDS: LOSARTAN POTASSIUM 50 MG TABLET GT SCH (10:09)
[2021-02-03] MEDS: ENOXAPARIN NA (PORCINE) 40 MG/0.4 ML DISP.SYRIN SQ SCH (10:09)
[2021-02-03 10:31] LABS: ANISOCYTOSIS 1+; MACROCYTOSIS 0; PLATELET ESTIMATE DECREASED
[2021-02-03] MEDS: ATORVASTATIN CA 20 MG TABLET (FP) PO SCH (21:35)
[2021-02-03] MEDS: SENNOSIDES 8.8 MG/5 ML BULK BOTTLE PO SCH (21:36)
[2021-02-04] MEDS: INSULIN SLIDING SCALE (NOVOLOG) 1 VIAL SQ SCH ×4 (00:05→19:12)
[2021-02-04] MEDS ORDERED: FUROSEMIDE 40 MG/4 ML INJECTABLE VIAL IVPUSH STA (01:02)
[2021-02-04 01:36] LABS: ARTERIAL BLD GAS O2 SATURATION 99.1 mmHg (95-98); ARTERIAL BLOOD GAS BASE EXCESS 5.5 mmol/L (-2-2); ARTERIAL BLOOD GAS PO2 143.8 mmHg (80-100); ARTERIAL BLOOD GAS pH 7.528 (7.350-7.450)
[2021-02-04 01:39] LABS: ALLENS TEST POSITIVE; VENT MODE S/T; VENT RATE 12
[2021-02-04 06:45] LABS: BASO % 0.5 % (0-2.0); EOS % 2.4 % (0-4.5); HEMATOCRIT 25.6 % (32.4-45.2); HEMOGLOBIN 8.5 GM/dL (10.7-15.3); LYMPH % 4.4 % (8-40); MCH 32.3 pg (25.7-33.7); MCHC 33.4 g/dl (32.0-36.0); MEAN CELL VOLUME 96.7 fl (80-96); MEAN PLT VOLUME 8.4 fl (7.5-11.1); MONO % 4.3 % (3.8-10.2); NEUT % 88.4 % (42.8-82.8); PLATELET COUNT 112 K/MM3 (134-434); RBC 2.65 M/mm3 (3.60-5.2); RDW 18.8 % (11.6-15.6); WHITE BLOOD COUNT 18.4 K/mm3 (4.0-10.0)
[2021-02-04 07:08] LABS: ALBUMIN 2.5 g/dl (3.4-5.0); BLOOD UREA NITROGEN 39.2 mg/dL (7-18); CALCIUM 7.7 mg/dL (8.5-10.1)
[2021-02-04 07:10] LABS: BILIRUBIN,TOTAL 0.5 mg/dL (0.2-1); TOT PROT 4.5 g/dl (6.4-8.2)
[2021-02-04 07:12] LABS: CREATININE 0.8 mg/dL (0.55-1.3)
[2021-02-04] MEDS ORDERED: POTASSIUM CHLORIDE ORAL LIQUID 20 MEQ/15 ML NGT ONE (07:31)
[2021-02-04] MEDS: FUROSEMIDE 40 MG/4 ML INJECTABLE VIAL IVPUSH SCH (09:52)
[2021-02-04] MEDS: LOSARTAN POTASSIUM 50 MG TABLET GT SCH (09:52)
[2021-02-04] MEDS: ENOXAPARIN NA (PORCINE) 40 MG/0.4 ML DISP.SYRIN SQ SCH (09:52)
[2021-02-04] MEDS: FAMOTIDINE 20 MG/50 ML IVPB 20 MG/50 ML MG IVPB SCH (09:53)
[2021-02-04] MEDS ORDERED: FUROSEMIDE 40 MG/4 ML INJECTABLE VIAL IVPUSH ONE (11:56)
[2021-02-04] MEDS ORDERED: ALBUTEROL SO4 HFA INHALER IH PRN (17:49)
[2021-02-04] MEDS ORDERED: POLYETHYLENE GLYCOL 3350 119 GM BTL PO PRN (20:14)
[2021-02-04] MEDS ORDERED: DOCUSATE NA 100 MG/10 ML UNIT-DOSE CUPS PO PRN (20:14)
[2021-02-04] MEDS ORDERED: hydrALAZINE HCL 20 MG/ML VIAL IVPUSH PRN (20:14)
[2021-02-04] MEDS ORDERED: ACETAMINOPHEN 650 MG/20.3 ML ORAL SOLUTION (CUPS) NGT PRN (20:14)
[2021-02-04] MEDS: MUPIROCIN 2% TOPICAL OINTMENT FOR DECOLONIZATION NS SCH (21:48)
[2021-02-04] MEDS: SENNOSIDES 8.8 MG/5 ML BULK BOTTLE PO SCH (21:49)
[2021-02-04] MEDS: CHLORHEXIDINE GLUCONATE 4% CLEANSER FOR DECOLONIZATION TP SCH (21:49)
[2021-02-04] MEDS: ATORVASTATIN CA 20 MG TABLET (FP) PO SCH (21:49)
[2021-02-05] MEDS: INSULIN SLIDING SCALE (NOVOLOG) 1 VIAL SQ SCH ×4 (00:39→18:00)
[2021-02-05] MEDS ORDERED: PROPOFOL 1,000,000 MCG/100 ML VIAL ONE (02:47)
[2021-02-05] MEDS ORDERED: PROPOFOL 1,000,000 MCG/100 ML VIAL IVPB SCH (03:00)
[2021-02-05] MEDS ORDERED: NOREPINEPHRINE BITARTRATE 8,000 MCG/500 ML BAG IVPB SCH (03:15)
[2021-02-05] MEDS ORDERED: VASOPRESSIN 40 UNITS in SODIUM CHLORIDE 98 ML IVPB SCH ×2 (03:15→05:30)
[2021-02-05] MEDS ORDERED: FENTANYL NS IVPB 500 MCG/100 ML BAG IVPB ONE (04:15)
[2021-02-05] MEDS ORDERED: FENTANYL IVPB 500 MCG/100 ML BAG IVPB SCH (04:15)
[2021-02-05] MEDS ORDERED: VECURONIUM BROMIDE 20 MG/20 ML VIAL IV ONE (05:15)
[2021-02-05] MEDS ORDERED: VECURONIUM BROMIDE 20 MG/20 ML VIAL ONE (05:18)
[2021-02-05 07:19] LABS: BASO % 0.2 % (0-2.0); EOS % 0.7 % (0-4.5); HEMATOCRIT 30.9 % (32.4-45.2); HEMOGLOBIN 9.9 GM/dL (10.7-15.3); LYMPH % 8.7 % (8-40); MCH 32.4 pg (25.7-33.7); MCHC 32.2 g/dl (32.0-36.0); MEAN CELL VOLUME 100.5 fl (80-96); MEAN PLT VOLUME 9.2 fl (7.5-11.1); MONO % 1.8 % (3.8-10.2); NEUT % 88.6 % (42.8-82.8); PLATELET COUNT 95 K/MM3 (134-434); RBC 3.07 M/mm3 (3.60-5.2); RDW 19.9 % (11.6-15.6)
[2021-02-05] MEDS ORDERED: SODIUM CHLORIDE 250 ML IV STA (07:24)
[2021-02-05 07:36] LABS: ALBUMIN 2.3 g/dl (3.4-5.0); BLOOD UREA NITROGEN 38.7 mg/dL (7-18); CALCIUM 7.2 mg/dL (8.5-10.1); MAGNESIUM 2.1 mg/dL (1.8-2.4)
[2021-02-05 07:39] LABS: CREATININE 1.2 mg/dL (0.55-1.3); PHOSPHOROUS 5.9 mg/dL (2.5-4.9)
[2021-02-05 07:41] LABS: BILIRUBIN,TOTAL 0.7 mg/dL (0.2-1); TOT PROT 4.4 g/dl (6.4-8.2)
[2021-02-05] MEDS: LOSARTAN POTASSIUM 50 MG TABLET GT SCH ×2 (09:47→10:07)
[2021-02-05] MEDS ORDERED: FUROSEMIDE 40 MG/4 ML INJECTABLE VIAL IVPUSH SCH (10:00)
[2021-02-05] MEDS ORDERED: FAMOTIDINE 20 MG/50 ML IVPB 20 MG/50 ML MG IVPB SCH (10:00)
[2021-02-05] MEDS ORDERED: ENOXAPARIN NA (PORCINE) 40 MG/0.4 ML DISP.SYRIN SQ SCH (10:00)
[2021-02-05] MEDS: MUPIROCIN 2% TOPICAL OINTMENT FOR DECOLONIZATION NS SCH ×2 (11:00→21:06)
[2021-02-05] MEDS ORDERED: VASOPRESSIN 20 UNITS/ML VIAL IV ONE (11:06)
[2021-02-05] MEDS ORDERED: DEXTROSE 50%-WATER 25 GM/50 ML DISP.SYRIN ONE (11:12)
[2021-02-05] MEDS ORDERED: NOREPINEPHRINE BITARTRATE 8,000 MCG/500 ML BAG IVPB ONE (16:09)
[2021-02-05 19:05] LABS: EPI CELLS >36 /uL (0-25.1); HYALINE CASTS 22 /uL (0-3.1); URINE APPEARANCE CLOUDY; URINE BACTERIA 79 /uL (0-1359); URINE BILIRUBIN NEGATIVE (NEGATIVE); URINE COLOR YELLOW; URINE GLUCOSE (UA) NEGATIVE (NEGATIVE); URINE KETONE NEGATIVE (NEGATIVE); URINE LEUK ESTERASE 2+ (NEGATIVE); URINE NITRITE NEGATIVE (NEGATIVE); URINE PROTEIN 1+ (NEGATIVE); URINE RBC 66 /uL (0-23.9); URINE UROBILINOGEN 0.2 mg/dL (0.2-1.0); URINE WBC 330 /uL (0-25.8)
[2021-02-05] MEDS ORDERED: NOREPINEPHRINE BITARTRATE 4 MG/4 ML ML IV ONE (19:27)
[2021-02-05] MEDS ORDERED: PHENYLEPHRINE HCL 10 MG/1 ML SINGLE DOSE VIAL ONE (20:19)
[2021-02-05] MEDS ORDERED: PHENYLEPHRINE NS PREMIX 50,000 MCG/500 ML BAG CVP SCH (20:30)
[2021-02-05] MEDS: CHLORHEXIDINE GLUCONATE 4% CLEANSER FOR DECOLONIZATION TP SCH (21:07)
[2021-02-05] MEDS: SENNOSIDES 8.8 MG/5 ML BULK BOTTLE PO SCH (21:07)
[2021-02-05] MEDS: ATORVASTATIN CA 20 MG TABLET (FP) PO SCH (21:07)
[2021-02-05] MEDS ORDERED: DEXTROSE 50%-WATER - 25 GM/50 ML VIAL IVPUSH PRN (21:18)
[2021-02-05] MEDS ORDERED: DEXAMETHASONE SOD PHOSPHATE 4 MG/1 ML VIAL IVPUSH SCH (22:00)
[2021-02-05] MEDS ORDERED: DOBUTAMINE 250 MG/D5W - 250,000 MCG/250 ML INFUS.BAG IV SCH (22:45)
[2021-02-05 23:00] VITALS: TEMP 98
[2021-02-05] MEDS ORDERED: EPINEPHrine/PF 1 MG/1 ML (1:1,000) AMPULE ONE (23:23)
[2021-02-05] MEDS ORDERED: EPINEPHRINE IVPB SCH (23:30)
[2021-02-05] MEDS ORDERED: DEXTROSE 5% IVPB SCH (23:30)
[2021-02-05] MEDS ORDERED: WATER IVPB SCH (23:30)
[2021-02-06 00:36] VITALS: BP 67/44
[2021-02-06] MEDS ORDERED: EPINEPHrine 1:10,000 (P-F SYR) 1 MG/10 ML DISP.SYRIN ONE (00:42)
[2021-02-06 00:51] LABS: ARTERIAL BLD GAS O2 SATURATION 92.3 mmHg (95-98); ARTERIAL BLOOD GAS PO2 108.3 mmHg (80-100)
[2021-02-06 01:11] LABS: ARTERIAL BLOOD GAS pH 6.848 (7.350-7.450)
[2021-02-06 01:12] LABS: ALLENS TEST POSITIVE; VENT MODE A/C; VENT RATE 16
[2021-02-06] MEDS: INSULIN SLIDING SCALE (NOVOLOG) 1 VIAL SQ SCH (01:30)
[2021-02-06 01:50] LABS: YEAST PRESENT (NEGATIVE)
[2021-02-06 03:12] VITALS: PULSE 61
== END 2021-02-06 00:50 | disposition expired | DRG 207 ==
LOC: JER 05:33 → JERBED 11:16 → J4W 21:20 → JICU 01-12 12:46 → J4S 02-01 19:13 → JICU 02-04 15:55
PROVIDERS: ADMIT Internal Medicine; ATTEND Internal Medicine Pulmonary Disease
PROC: XW033E5 Introduction of Remdesivir Anti-infective into Peripheral Vein, Percutaneous Approach, New Technology Group 5 (ICD-10-PCS; 2021-01-09)
PROC: XW13325 Transfusion of Convalescent Plasma (Nonautologous) into Peripheral Vein, Percutaneous Approach, New Technology Group 5 (ICD-10-PCS; 2021-01-10)
PROC: 5A1955Z Respiratory Ventilation, Greater than 96 Consecutive Hours (ICD-10-PCS; principal; 2021-01-12)
PROC: 0BH17EZ Insertion of Endotracheal Airway into Trachea, Via Natural or Artificial Opening (ICD-10-PCS; 2021-01-12)
PROC: 0DH67UZ Insertion of Feeding Device into Stomach, Via Natural or Artificial Opening (ICD-10-PCS; 2021-01-12)
PROC: 3E0G76Z Introduction of Nutritional Substance into Upper GI, Via Natural or Artificial Opening (ICD-10-PCS; 2021-01-12)
PROC: XW033H5 Introduction of Tocilizumab into Peripheral Vein, Percutaneous Approach, New Technology Group 5 (ICD-10-PCS; 2021-01-12)
PROC: 02H633Z Insertion of Infusion Device into Right Atrium, Percutaneous Approach (ICD-10-PCS; 2021-01-12)
PROC: B548ZZA Ultrasonography of Superior Vena Cava, Guidance (ICD-10-PCS; 2021-01-12)
PROC: 02HV33Z Insertion of Infusion Device into Superior Vena Cava, Percutaneous Approach (ICD-10-PCS; 2021-01-19)
PROC: B548ZZA Ultrasonography of Superior Vena Cava, Guidance (ICD-10-PCS; 2021-01-19)
PROC: 5A1945Z Respiratory Ventilation, 24-96 Consecutive Hours (ICD-10-PCS; 2021-02-04)
PROC: 0BH17EZ Insertion of Endotracheal Airway into Trachea, Via Natural or Artificial Opening (ICD-10-PCS; 2021-02-04)
PROC: 02HV33Z Insertion of Infusion Device into Superior Vena Cava, Percutaneous Approach (ICD-10-PCS; 2021-02-05)
PROC: B548ZZA Ultrasonography of Superior Vena Cava, Guidance (ICD-10-PCS; 2021-02-05)
PROC: 0W9B30Z Drainage of Left Pleural Cavity with Drainage Device, Percutaneous Approach (ICD-10-PCS; 2021-02-05)
DX: U07.1 COVID-19 (principal); J12.82 Pneumonia due to coronavirus disease 2019; J80 Acute respiratory distress syndrome; R65.21 Severe sepsis with septic shock; N39.0 Urinary tract infection, site not specified; N17.9 Acute kidney failure, unspecified; E87.3 Alkalosis; E87.0 Hyperosmolality and hypernatremia; J93.9 Pneumothorax, unspecified; I50.32 Chronic diastolic (congestive) heart failure; I11.0 Hypertensive heart disease with heart failure; M54.9 Dorsalgia, unspecified; I25.10 Atherosclerotic heart disease of native coronary artery without angina pectoris
CPT/HCPCS: 31500; 36415; 36430; 36600; 71045-TC-FY; 74176-TC; 80048; 80053; 80061; 81003; 82272; 82436; 82550; 82570; 82728; 82803; 82962; 83036; 83540; 83550; 83605; 83615; 83690; 83721; 83735; 83880; 84100; 84133; 84300; 84439; 84443; 84484; 85025; 85027; 85045; 85379; 85610; 85651; 85730; 86140; 86480; 86704; 86706; 86707; 86708; 86709; 86769; 86850; 86900; 86901; 87040; 87070; 87077; 87086; 87186; 87205; 87340; 87522; 87804; 93005; 93010; 94002; 94660; 99285-25; C9399; C9803; J0131; J1250; J3262; P9017; U0003; U0005